=== PATIENT | female | born 1985 | race Caucasian/White ===

== ENCOUNTER 2016-05-23 16:41 | Emergency (ER) | payer MEDICAID ==
[2016-05-23 16:55] VITALS: RESP 16; TEMP 97.9
--- NOTE | 2016-05-23 17:26 | EDPHY ---
H & P Stated Complaint: Fell yesterday;c/o low back pain HPI/ROS: HPI CHIEF COMPLAINT: fall, low back pain HISTORY OF PRESENT ILLNESS: this patient very pleasant 30-year-old female, she denies any significant medical history or surgical history she presents emergency room with left lower lumbar paravertebral back pain after a fall yesterday. Patient states she was smoking a cigarette standing on her outside stairs she got lightheaded after smoking the cigarette fell backwards landing on her left low back. she still has pain to her lumbar spine paravertebral left-sided, and left posterior sacral iliac wing. She is able to walk. She denies radiation of pain specifically denies radiation pain down her leg, denies leg weakness, denies numbness or tingling, denies chest pain or shortness of breath. Past Medical History: Hormone replacement Past Surgical History: no significant surgical history Social History: daily tobacco use, denies alcohol or drugs Family History: noncontributory ROS REVIEW OF SYSTEMS: A comprehensive 10 point review of systems is otherwise negative aside from elements mentioned in the history of present illness. Exam Constitutional triage nursing summary reviewed, vital signs reviewed, awake/ alert. Eyes normal conjunctivae and sclera, EOMI, PERRLA. HENT normal inspection, atraumatic, moist mucus membranes, no epistaxis, neck supple/ no meningismus, no raccoon eyes. Respiratory clear to auscultation bilaterally, normal breath sounds, no respiratory distress, no wheezing. Cardiovascular rate normal, regular rhythm, no murmur, no edema, distal pulses normal. Gastrointestinal soft, non-tender, no rebound, no guarding, normal bowel sounds, no distension, no pulsatile mass. Genitourinary no CVA tenderness. Musculoskeletal back exam: no significant midline lumbar tenderness, no crepitus, no step-offs, she does have some left-sided lumbar paravertebral tenderness, and tenderness over the left posterior sacroiliac crest, no leg weakness, no saddle anesthesia, no midline vertebral tenderness, full range of motion, no calf swelling, no tenderness of extremities, no meningismus, good pulses, neurovascularly intact. Skin pink, warm, & dry, no rash, skin atraumatic. Neurologic awake, alert and oriented x 3, AAOx3, moves all 4 extremities equally, motor intact, sensory intact, CN II-XII intact, normal cerebellar, normal vision, normal speech. Psychiatric normal mood/affect. Heme/Lymph/Immune no lymphadenopathy. Differential Diagnosis: includes but is not limited to in a particular, back contusion, compression fracture, degenerative joint disease, annular tear, nerve root compression, soft tissue injury, pelvic fracture Medical Decision Making: this patient be medicated with Jennings and Valium for pain control muscle spasms. She will have an x-ray of the lumbar spine, x-ray of the pelvis to a pelvis fracture as well as lumbar Spine fracture. Re-evaluation: CT scan of the Abdomen pelvis with IV contrast for trauma and blood in urine The results of the study are negative for acute traumatic injury specifically no perinephric stranding, no hematoma, no acute traumatic injury identified on CT scan unremarkable CT and pelvis with IV contrast The study was read by Dr. Nelson I viewed the images myself on the PACS system. 2011: re-evaluation at this time patient does feel much better after IV fentanyl. Blood work is unremarkable CT unremarkable for acute trauma. No identifiable source of severe left CVA pain after fall. I will put her on anti- inflammatory pain medicine ibuprofen 800 mg. She does feel better after IV fentanyl here in the emergency room. Her urinalysis does indicate she may have a urinary tract infection will also place her on Keflex and urine culture. Source: Patient - Personal History Current Tetanus Diphtheria and Acellular Pertussis (TDAP): Yes Tetanus Vaccine Date: 2013 - Medical/Surgical History Hx Asthma: No Hx Chronic Respiratory Disease: No Hx Diabetes: No Hx Cardiac Disease: No Hx Renal Disease: No Hx Cirrhosis: No Hx Alcoholism: No Hx HIV/AIDS: No Hx Splenectomy or Spleen Trauma: No Other PMH: Hysterectomy, Right oopherectomy, Choly, Bilateral wrist cyst removals, bilateral knee surgeries, tonsillectomy, wisdom teeth extracted, pilonidal cyst removal, ovarian cysts - Social History Smoking Status: Current every day smoker Constitutional: Initial Vital Signs Temperature (C) 36.6 C 05/23/16 16:45 Heart Rate 89 05/23/16 16:45 Respiratory Rate 16 05/23/16 16:45 Blood Pressure 136/98 H 05/23/16 16:45 O2 Sat (%) 95 05/23/16 16:45 O2 Delivery Mode Room Air Allergies/Adverse Reactions: ketorolac tromethamine [From Toradol] Allergy (Verified 05/23/16 16:53) latex Allergy (Verified 05/10/16 05:01) tramadol Allergy (Verified 05/23/16 16:53) tree nut Allergy (Verified 05/10/16 05:01) Home Medications: Medication Instructions Recorded Estradiol 04/29/16 Cephalexin [Keflex] 500 mg PO Q6H #28 cap 05/23/16 Hydrocodone/APAP 5/325 [Jennings 1 - 2 tab PO Q4H PRN #10 tab 05/23/16 5/325 (*)] Ibuprofen [Motrin (*)] 800 mg PO Q6-8PRN #10 tab 05/23/16 Medical Decision Making - Data Points Laboratory Results: Laboratory Results 05/23/16 18:15 05/23/16 18:15 05/23/16 05/23/16 18:15 17:35 WBC 10.82 H 10^3/uL (3.80-9.50) RBC 4.73 10^6/uL (4.18-5.33) Hgb 13.9 g/dL (12.6-16.3) Hct 40.8 % (38.0-47.0) MCV 86.3 fL (81.5-99.8) MCH 29.4 pg (27.9-34.1) MCHC 34.1 g/dL (32.4-36.7) RDW 13.6 % (11.5-15.2) Plt Count 285 10^3/uL (150-400) MPV 10.4 fL (8.7-11.7) Neut % (Auto) 69.5 % (39.3-74.2) Lymph % (Auto) 23.8 % (15.0-45.0) [place] % (Auto) 4.5 % (4.5-13.0) Eos % (Auto) 1.4 % (0.6-7.6) Baso % (Auto) 0.5 % (0.3-1.7) Nucleat RBC Rel Count 0.0 % (0.0-0.2) Absolute Neuts (auto) 7.53 H 10^3/uL (1.70-6.50) Absolute Lymphs (auto) 2.57 10^3/uL (1.00-3.00) Absolute Monos (auto) 0.49 10^3/uL (0.30-0.80) Absolute Eos (auto) 0.15 10^3/uL (0.03-0.40) Absolute Basos (auto) 0.05 10^3/uL (0.02-0.10) Absolute Nucleated RBC 0.00 10^3/uL (0-0.01) Immature Gran % 0.3 % (0.0-1.1) Immature Gran # 0.03 10^3/uL (0.00-0.10) Sodium 141 mEq/L (134-144) Potassium 4.1 mEq/L (3.5-5.2) Chloride 105 mEq/L (97-110) Carbon Dioxide 22 mEq/l (22-31) Anion Gap 14 mEq/L (8-16) BUN 10 mg/dL (7-23) Creatinine 0.8 mg/dL (0.6-1.0) Estimated GFR > 60 Glucose 83 mg/dL (70-100) Calcium 9.7 mg/dL (8.5-10.4) Beta HCG, Qual NEGATIVE Urine Color YELLOW Urine Appearance CLEAR Urine pH 6.0 (5.0-7.5) Ur Specific [place] 1.006 (1.002-1.030) Urine Protein NEGATIVE (NEGATIVE) Urine Ketones NEGATIVE (NEGATIVE) Urine Blood 1+ H (NEGATIVE) Urine Nitrate NEGATIVE (NEGATIVE) Urine Bilirubin NEGATIVE (NEGATIVE) Urine Urobilinogen NEGATIVE EU (0.2-1.0) Ur Leukocyte Esterase NEGATIVE (NEGATIVE) Urine RBC 5-10 H /hpf (0-3) Urine WBC 3-5 H /hpf (0-3) Ur Epithelial Cells TRACE /lpf (NONE-1+) Urine Bacteria 4+ H /hpf (NONE SEEN) Urine Mucus TRACE /lpf (NONE-1+) Ur Culture Indicated? INDICATED H (NI) Urine Glucose NEGATIVE (NEGATIVE) Medications Given: Discontinued Medications Acetaminophen/Hydrocodone Bitart (Jennings 10325) 1 tab PO EDNOW ONE Stop: 05/23/16 17:44 Last Admin: 05/23/16 17:48 Dose: 1 tab Diazepam (Valium) 5 mg PO EDNOW ONE Stop: 05/23/16 17:45 Last Admin: 05/23/16 17:49 Dose: 5 mg Fentanyl (Sublimaze) 50 mcg IVP EDNOW ONE Stop: 05/23/16 18:54 Last Admin: 05/23/16 18:56 Dose: 50 mcg Fentanyl (Sublimaze) 50 mcg IVP EDNOW ONE Stop: 05/23/16 19:19 Last Admin: 05/23/16 19:25 Dose: 50 mcg Sodium Chloride (Ns) 1,000 mls @ 0 mls/hr IV ONCE ONE PRN Reason: Wide Open Stop: 05/23/16 18:04 Last Admin: 05/23/16 18:19 Dose: 1,000 mls Departure - Departure Disposition: Home, Routine, Self-Care Clinical Impression: Flank pain Urinary tract infection Qualifiers: Urinary tract infection type: acute cystitis Hematuria presence: with hematuria Qualifier Code: (N30.01) Acute cystitis with hematuria Condition: Good Instructions: Flank Pain (ED) Additional Instructions: 1. Rest stay well-hydrated 2. you have a urinary tract infection on her urinalysis I have sent this for culture please take Keflex as prescribed. 3. Your CT scan does not show any acute traumatic injury. 4. Take ibuprofen for pain control. Referrals: NONE *PRIMARY CARE P,. [Primary Care Provider] - As per Instructions Prescriptions: Cephalexin [Keflex] 500 mg PO Q6H #28 cap Ibuprofen [Motrin (*)] 800 mg PO Q6-8PRN #10 tab Hydrocodone/APAP 5/325 [Jennings 5/325 (*)] 1 - 2 tab PO Q4H PRN #10 tab PRN Reason: Pain, Moderate
[2016-05-23] MEDS ORDERED: HYDROCODONE/APAP 10/325 TAB PO ONE (17:43)
[2016-05-23] MEDS ORDERED: DIAZEPAM 5 MG TAB PO ONE (17:44)
[2016-05-23 17:51] LABS: COLOR YELLOW; LEUKOCYTE ESTERASE,URINE NEGATIVE (NEGATIVE); NITRITE,URINE NEGATIVE (NEGATIVE)
[2016-05-23 17:59] LABS: BACTERIA 4+ /hpf (NONE SEEN); MUCUS TRACE /lpf (NONE-1+)
[2016-05-23] MEDS ORDERED: NS 1,000 ML IV ONE (18:03)
[2016-05-23 18:21] LABS: % IMMATURE GRANULYOCYTES 0.3 % (0.0-1.1); ABSOLUTE IMMATURE GRANULOCYTES 0.03 10^3/uL (0.00-0.10); ADD DIFF? NO; ADD MORPH? NO; ADD SCAN? NO; ATYPICAL LYMPHOCYTE FLAG 0 (0-99); FRAGMENT RBC FLAG 0 (0-99); HEMATOCRIT 40.8 % (38.0-47.0); HEMOGLOBIN 13.9 g/dL (12.6-16.3); LEFT SHIFT FLG 0 (0-99); LIPEMIA HEMOLYSIS FLAG 90 (0-99); MEAN CELL HEMOGLOBIN 29.4 pg (27.9-34.1); MEAN CELL HEMOGLOBIN CONCENTR. 34.1 g/dL (32.4-36.7); MEAN CELL VOLUME 86.3 fL (81.5-99.8); MEAN PLATELET VOLUME 10.4 fL (8.7-11.7); PLATELET CLUMPS FLAG 0 (0-99); PLATELET COUNT 285 10^3/uL (150-400); RED BLOOD CELL COUNT 4.73 10^6/uL (4.18-5.33); RED CELL DISTRIBUTION WIDTH 13.6 % (11.5-15.2)
--- NOTE | 2016-05-23 18:28 | DX ---
Pelvis and Lumbar Spine Clinical History: 30-year-old female with pain after a fall yesterday. Comparison Study: CT scan of the lumbar spine, dated May 07, 2015. Findings: LUMBAR SPINE (AP Upright and Lateral Views, at 5:34 p.m.): There are 5 nonrib-bearing lumbar type lorraine tebral bodies, with hypoplastic T12 ribs. There are postcholecystectomy clips in the right upper quad rant of the abdomen. The lumbar vertebral body heights and posterior alignments are maintained. There are Schmorl's nodes seen along the endplates of T10, T11, T12, L1, and L2, and small ventral tractio n spurs are seen at T9-T11 with degenerative disc space narrowing at T9-T10, T10-T11, and T11-T12. Mi nor ventral concavities at T12 and L1 are unchanged from before. The interpediculate distances are ap propriate. The sacral arcuate lines are well-contoured, and the SI joints appear normal. Impression: No acute or subacute osseous abnormality, or substantial change since May 07, 2015. AP UPRIGHT PELVIS, at 5:32 p.m.: Bone mineralization is preserved. Each femoral head is well-seated w ithin its respective acetabulum. There is no acute fracture or dislocation. There is no symphysis pub is or SI joint diastasis. Impression: No acute abnormality.
[2016-05-23 18:35] LABS: ANION GAP 14 mEq/L (8-16); CALCIUM 9.7 mg/dL (8.5-10.4); CARBON DIOXIDE 22 mEq/l (22-31); CHLORIDE 105 mEq/L (97-110); CREATININE 0.8 mg/dL (0.6-1.0); GLOMERULAR FILTRATION RATE > 60; GLUCOSE 83 mg/dL (70-100); POTASSIUM 4.1 mEq/L (3.5-5.2); SODIUM 141 mEq/L (134-144)
[2016-05-23] MEDS ORDERED: fentaNYL 100 MCG/2 ML INJ IVP ONE ×2 (18:53→19:18)
[2016-05-23] MEDS ORDERED: fentaNYL 100 MCG/2 ML INJ ONE (18:54)
[2016-05-23] MEDS ORDERED: IOPAMIDOL (ISOVUE-300) 50 ML VIAL IV ONE (19:35)
--- NOTE | 2016-05-23 20:18 | CT ---
CT Scan of the Abdomen and Pelvis (With Contrast) May 23, 2016 Indication: Left-sided flank pain. Trauma. Technique: No oral or rectal contrast. 95 mL of Isovue 300 was given intravenously by machine power injection. Multidetector helical CT imaging was performed from the diaphragm to the symphysis pubis. Dose reduction techniques were utilized. Findings: No acute fracture, free fluid, mesenteric edema or pneumoperitoneum. Lung bases are clear. No basilar pneumothorax or effusion. The liver, spleen, pancreas, adrenal glands, and kidneys are normal. No solid organ contusion or lace ration. The gallbladder is surgically absent. Minimal dilatation of the common bile duct (8 mm) is li jesus postcholecystectomy baseline. The bowel pattern is within normal limit. The appendix is normal. The urinary bladder is nearly compl etely empty. The uterus is either atrophic or surgically absent. No adnexal mass. The abdominal aorta is normal caliber. No acute lumbar spine or pelvic fracture. An umbilical hernia containing only fat has minimal stranding. Impression: 1. No acute solid organ or bowel injury. 2. No acute fracture or free fluid. 3. Umbilical hernia containing only fat. Comment: Results were discussed with Dr. Eric Landers at 8:10 p.m. on May 23, 2016.
[2016-05-23] MEDS ORDERED: CEPHALEXIN 500 MG CAP PO ONE (20:30)
[2016-05-23] MEDS ORDERED: HYDROCOD/APAP 5/325 PREPACK#6 BTL TAKEHOME ONE ×2 (20:30→20:36)
[2016-05-23] MEDS ORDERED: CEPHALEXIN 500MG PREPACK#4 BTL TAKEHOME ONE ×2 (20:31→20:36)
[2016-05-23 20:39] VITALS: BP 119/74; PULSE 63; O2SAT 98
== END 2016-05-23 20:37 | disposition home or self-care (01) ==
DX: S39.91XA Unspecified injury of abdomen, initial encounter (principal); N30.01 Acute cystitis with hematuria; B96.89 Other specified bacterial agents as the cause of diseases classified elsewhere; F17.210 Nicotine dependence, cigarettes, uncomplicated; Z90.710 Acquired absence of both cervix and uterus; Z91.040 Latex allergy status; W18.39XA Other fall on same level, initial encounter
CPT/HCPCS: 96374; J3010; Q9967

== ENCOUNTER 2017-03-16 21:56 | Emergency (ER) | payer MEDICAID ==
--- NOTE | 2017-03-16 22:37 | CPEKG ---
Heart Rate: 68 RR Interval: 882 P-R Interval: 148 QRSD Interval: 90 QT Interval: 380 QTC Interval: 405 P [place]: 15 QRS [place]: 43 T Wave [place]: 30 EKG Severity - NORMAL ECG - EKG Impression: SINUS RHYTHM Electronically Signed By: Rachel Gomez 17-Mar-2017 07:36:11
[2017-03-16] MEDS ORDERED: PROMETHAZINE HCL 25 MG/ML INJ IVP ONE (22:56)
[2017-03-16 23:01] LABS: % IMMATURE GRANULYOCYTES 1.1 % (0.0-1.1); ABSOLUTE IMMATURE GRANULOCYTES 0.14 10^3/uL (0.00-0.10); ADD DIFF? NO; ADD MORPH? NO; ADD SCAN? NO; ATYPICAL LYMPHOCYTE FLAG 20 (0-99); FRAGMENT RBC FLAG 0 (0-99); HEMATOCRIT 39.2 % (38.0-47.0); HEMOGLOBIN 13.2 g/dL (12.6-16.3); LEFT SHIFT FLG 10 (0-99); LIPEMIA HEMOLYSIS FLAG 80 (0-99); MEAN CELL HEMOGLOBIN 29.5 pg (27.9-34.1); MEAN CELL HEMOGLOBIN CONCENTR. 33.7 g/dL (32.4-36.7); MEAN CELL VOLUME 87.7 fL (81.5-99.8); MEAN PLATELET VOLUME 10.2 fL (8.7-11.7); PLATELET CLUMPS FLAG 0 (0-99); PLATELET COUNT 317 10^3/uL (150-400); RED BLOOD CELL COUNT 4.47 10^6/uL (4.18-5.33)
--- NOTE | 2017-03-16 23:01 | EDPHY ---
H & P Stated Complaint: L FLANK POAIN FEW DAYS, SOME NAUSEA, DENIES URINATION PROBLEMS Time Seen by Provider: 03/16/17 22:44 HPI/ROS: HPI The patient presents with left flank pain which has been present for the last 2 days and started slowly, has been intermittent, though getting progressively worse. She describes it as a sharp pain in her left lower posterior ribcage that radiates throughout her abdomen. It is associated with nausea. She said she had difficulty eating her dinner but did not throw up. She has no history of similar pain. She took Tylenol and ibuprofen just prior to arrival. She does not have any dysuria, fever, coughing. I have seen her are in this emergency department for many complaints related to pain. REVIEW OF SYSTEMS Constitutional: No fever, no chills. Eyes: No discharge. ENT: No sore throat. Cardiovascular: No chest pain, no palpitations. Respiratory: No cough, no shortness of breath. Gastrointestinal: See HPI Genitourinary: No hematuria. Musculoskeletal: No back pain. Skin: No rashes. Neurological: No headache. PMHx: Multiple abdominal surgeries Soc Hx: [facility], works at [employer] PHYSICAL General Appearance: Alert, no distress Eyes: Pupils equal and round no pallor or injection ENT, Mouth: Mucous membranes moist Respiratory: There are no retractions, lungs are clear to auscultation Cardiovascular: Regular rate and rhythm Chest wall: There is tenderness to deep palpation of her left lower rib cage posteriorly Gastrointestinal: Abdomen is soft and non-tender, no masses, bowel sounds normal Neurological: A&O, moves all extremities Skin: Warm and dry, no rashes Musculoskeletal: Neck is supple non tender Extremities: symmetrical, full range of motion Psychiatric: Patient is oriented X 3, there is no agitation Source: Patient Exam Limitations: No limitations - Personal History LMP (Females 10-55): Hysterectomy Current Tetanus/Diphtheria Vaccine: Yes Current Tetanus Diphtheria and Acellular Pertussis (TDAP): Yes Tetanus Vaccine Date: 2013 - Medical/Surgical History Hx Asthma: No Hx Chronic Respiratory Disease: No Hx Diabetes: No Hx Cardiac Disease: No Hx Renal Disease: No Hx Cirrhosis: No Hx Alcoholism: No Hx HIV/AIDS: No Hx Splenectomy or Spleen Trauma: No Other PMH: Hysterectomy, Right oopherectomy, Choly, Bilateral wrist cyst removals, bilateral knee surgeries, tonsillectomy, wisdom teeth extracted, pilonidal cyst removal, ovarian cysts - Social History Smoking Status: Current every day smoker Constitutional: Initial Vital Signs Temperature (C) 37.0 C 03/16/17 22:05 Heart Rate 71 03/16/17 22:05 Respiratory Rate 16 03/16/17 22:05 Blood Pressure 133/90 H 03/16/17 22:05 O2 Sat (%) 95 03/16/17 22:05 O2 Delivery Mode Nasal Cannula O2 (L/minute) 2 Allergies/Adverse Reactions: ketorolac tromethamine [From Toradol] Allergy (Verified 03/16/17 22:17) latex Allergy (Verified 03/16/17:17) tramadol Allergy (Verified 03/16/17:) tree nut Allergy (Verified 03/16/17:17) Home Medications: Medication Instructions Recorded Estradiol 04/29/16 Ibuprofen [Motrin (*)] 800 mg PO Q6-8PRN #10 tab 05/23/16 Medical Decision Making - Diagnostics EKG Interpretation: EKG: Complete interpretation has been separately recorded in the [facility] archive. Summary impression: Normal sinus rhythm Imaging Results: Imaging Impressions Chest X-Ray 03/16/17 22:27 Impression: No acute pulmonary disease. Imaging: I viewed and interpreted images myself Differential Diagnosis: 31-year-old female presents with left-sided abdominal/back pain which appears to be in her upper flank in her lower posterior rib segments. It is associated with nausea. Differential diagnosis includes nephrolithiasis, pyelonephritis, pleural effusion, pulmonary embolism, ACS, pericarditis, pancreatitis. In the emergency department, the patient was monitored for several hours and was resting comfortably for most of her stay. I gave her Phenergan, lidocaine with some improvement in her symptoms. Labs and studies were all unremarkable. I doubt any serious pathology at this time. I feel her pain could very well be musculoskeletal. I feel she is suitable for discharge. - Data Points Laboratory Results: Laboratory Results 03/16/17 22:35 03/16/17 22:35 03/17/17 03/16/17 03/16/17 01:15 22:35 22:35 WBC RBC Hgb Hct MCV MCH MCHC RDW Plt Count MPV Neut % (Auto) Lymph % (Auto) [place] % (Auto) Eos % (Auto) Baso % (Auto) Nucleat RBC Rel Count Absolute Neuts (auto) Absolute Lymphs (auto) Absolute Monos (auto) Absolute Eos (auto) Absolute Basos (auto) Absolute Nucleated RBC Immature Gran % Immature Gran # D-Dimer 0.35 ug/mLFEU ug/mLFEU (0.00-0.50) Sodium 140 mEq/L mEq/L (134-144) Potassium 4.2 mEq/L mEq/L (3.5-5.2) Chloride 101 mEq/L mEq/L (97-110) Carbon Dioxide 26 mEq/l mEq/l (22-31) Anion Gap 13 mEq/L mEq/L (8-16) BUN 12 mg/dL mg/dL (7-23) Creatinine 0.9 mg/dL mg/dL (0.6-1.0) Estimated GFR > 60 Glucose 96 mg/dL mg/dL (70-100) Calcium 9.7 mg/dL mg/dL (8.5-10.4) Total Bilirubin 0.2 mg/dL mg/dL (0.1-1.4) AST 17 IU/L IU/L (14-46) ALT 30 IU/L IU/L (9-52) Alkaline Phosphatase 66 IU/L IU/L (38-126) Total Protein 7.3 g/dL g/dL (6.3-8.2) Albumin 4.0 g/dL g/dL (3.5-5.0) Lipase 151 IU/L IU/L (23-300) Urine Color PALE YELLOW Urine Appearance CLEAR Urine pH 5.0 (5.0-7.5) Ur Specific [place] 1.010 (1.002-1.030) Urine Protein NEGATIVE (NEGATIVE) Urine Ketones NEGATIVE (NEGATIVE) Urine Blood NEGATIVE (NEGATIVE) Urine Nitrate NEGATIVE (NEGATIVE) Urine Bilirubin NEGATIVE (NEGATIVE) Urine Urobilinogen NEGATIVE EU EU (0.2-1.0) Ur Leukocyte Esterase NEGATIVE (NEGATIVE) Urine Glucose NEGATIVE (NEGATIVE) 03/16/17 22:35 WBC 12.23 10^3/uL H 10^3/uL (3.80-9.50) RBC 4.47 10^6/uL 10^6/uL (4.18-5.33) Hgb 13.2 g/dL g/dL (12.6-16.3) Hct 39.2 % % (38.0-47.0) MCV 87.7 fL fL (81.5-99.8) MCH 29.5 pg pg (27.9-34.1) MCHC 33.7 g/dL g/dL (32.4-36.7) RDW 14.0 % % (11.5-15.2) Plt Count 317 10^3/uL 10^3/uL (150-400) MPV 10.2 fL fL (8.7-11.7) Neut % (Auto) 60.7 % % (39.3-74.2) Lymph % (Auto) 30.4 % % (15.0-45.0) [place] % (Auto) 5.6 % % (4.5-13.0) Eos % (Auto) 1.8 % % (0.6-7.6) Baso % (Auto) 0.4 % % (0.3-1.7) Nucleat RBC Rel Count 0.0 % % (0.0-0.2) Absolute Neuts (auto) 7.41 10^3/uL H 10^3/uL (1.70-6.50) Absolute Lymphs (auto) 3.72 10^3/uL H 10^3/uL (1.00-3.00) Absolute Monos (auto) 0.69 10^3/uL 10^3/uL (0.30-0.80) Absolute Eos (auto) 0.22 10^3/uL 10^3/uL (0.03-0.40) Absolute Basos (auto) 0.05 10^3/uL 10^3/uL (0.02-0.10) Absolute Nucleated RBC 0.00 10^3/uL 10^3/uL (0-0.01) Immature Gran % 1.1 % % (0.0-1.1) Immature Gran # 0.14 10^3/uL H 10^3/uL (0.00-0.10) D-Dimer Sodium Potassium Chloride Carbon Dioxide Anion Gap BUN Creatinine Estimated GFR Glucose Calcium Total Bilirubin AST ALT Alkaline Phosphatase Total Protein Albumin Lipase Urine Color Urine Appearance Urine pH Ur Specific [place] Urine Protein Urine Ketones Urine Blood Urine Nitrate Urine Bilirubin Urine Urobilinogen Ur Leukocyte Esterase Urine Glucose Medications Given: Discontinued Medications Gabapentin (Neurontin) 600 mg PO EDNOW ONE Stop: 03/16/17 23:29 Last Admin: 03/16/17 23:38 Dose: 600 mg Lidocaine HCl 150 mg/ Sodium (Chloride) 115 mls @ 600 mls/hr IV EDNOW ONE Stop: 03/16/17 23:39 Last Admin: 03/16/17 23:37 Dose: 115 mls Lidocaine (Lidoderm 5%) 1 ea TD EDNOW ONE Stop: 03/16/17 23:29 Last Admin: 03/16/17 23:38 Dose: 1 ea Promethazine HCl (Phenergan) 12.5 mg IVP ONCE ONE Stop: 03/16/17 22:57 Last Admin: 03/16/17 23:04 Dose: 12.5 mg Departure - Departure Disposition: Home, Routine, Self-Care Clinical Impression: Left flank pain Condition: Good Instructions: Flank Pain (ED) Additional Instructions: Please return to the emergency department if your worse in any way. Referrals: [facility],. [Clinic] - As per Instructions
[2017-03-16 23:07] LABS: ALANINE AMINOTRANSFERASE 30 IU/L (9-52); ALKALINE PHOSPHATASE 66 IU/L (38-126); ANION GAP 13 mEq/L (8-16); ASPARTATE AMINOTRANSFERASE 17 IU/L (14-46); BILIRUBIN,TOTAL 0.2 mg/dL (0.1-1.4); CALCIUM 9.7 mg/dL (8.5-10.4); CARBON DIOXIDE 26 mEq/l (22-31); CHLORIDE 101 mEq/L (97-110); CREATININE 0.9 mg/dL (0.6-1.0); GLOMERULAR FILTRATION RATE > 60; GLUCOSE 96 mg/dL (70-100); POTASSIUM 4.2 mEq/L (3.5-5.2); SODIUM 140 mEq/L (134-144); TOTAL PROTEIN 7.3 g/dL (6.3-8.2)
[2017-03-16] MEDS ORDERED: GABAPENTIN 300 MG CAP PO ONE (23:28)
[2017-03-16] MEDS ORDERED: LIDOCAINE 1% 150 MG in NS 100 ML IV ONE (23:28)
[2017-03-16] MEDS ORDERED: LIDOCAINE 5% 1 EA PATCH TD ONE (23:28)
[2017-03-17 00:57] VITALS: TEMP 97.9
[2017-03-17 01:39] LABS: COLOR PALE YELLOW; LEUKOCYTE ESTERASE,URINE NEGATIVE (NEGATIVE); NITRITE,URINE NEGATIVE (NEGATIVE)
[2017-03-17 02:02] VITALS: BP 131/69; PULSE 74; RESP 16; O2SAT 94
[2017-03-17] MEDS ORDERED: PATCH REMOVAL 1 EA PATCH TD SCH (21:00)
== END 2017-03-17 02:03 | disposition home or self-care (01) ==
DX: R10.9 Unspecified abdominal pain (principal); F17.200 Nicotine dependence, unspecified, uncomplicated; Z91.040 Latex allergy status
CPT/HCPCS: 96374; J2550

== ENCOUNTER 2017-04-13 09:30 | Emergency (ER) | payer MEDICAID ==
[2017-04-13 09:35] VITALS: RESP 18
--- NOTE | 2017-04-13 09:45 | EDPHY ---
H & P Stated Complaint: Low back pain since yesterday Time Seen by Provider: 04/13/17 09:44 - Personal History LMP (Females 10-55): Hysterectomy Current Tetanus Diphtheria and Acellular Pertussis (TDAP): Yes Tetanus Vaccine Date: 2013 - Medical/Surgical History Hx Asthma: No Hx Chronic Respiratory Disease: No Hx Diabetes: No Hx Cardiac Disease: No Hx Renal Disease: No Hx Cirrhosis: No Hx Alcoholism: No Hx HIV/AIDS: No Hx Splenectomy or Spleen Trauma: No Other PMH: Hysterectomy, Right oopherectomy, Choly, Bilateral wrist cyst removals, bilateral knee surgeries, tonsillectomy, wisdom teeth extracted, pilonidal cyst removal, ovarian cysts - Social History Smoking Status: Current every day smoker Constitutional: Initial Vital Signs Temperature (C) 36.5 C 04/13/17 09:31 Heart Rate 92 04/13/17 09:31 Respiratory Rate 18 04/13/17 09:31 Blood Pressure 143/81 H 04/13/17 09:31 O2 Sat (%) 96 04/13/17 09:31 O2 Delivery Mode Room Air Allergies/Adverse Reactions: ketorolac tromethamine [From Toradol] Allergy (Verified 03/16/17 22:17) latex Allergy (Verified 03/16/17 22:17) tramadol Allergy (Verified 03/16/17 22:17) tree nut Allergy (Verified 03/16/17 22:17) Home Medications: Medication Instructions Recorded Estradiol 04/29/16 Ibuprofen [Motrin (*)] 800 mg PO Q6-8PRN #10 tab 05/23/16 methylPREDNISolone [Medrol Dose 1 each PO AD #1 ea 04/13/17 Dereje] oxyCODONE IR [Oxycodone Ir (*)] 5 - 10 mg PO Q6 PRN #20 tab 04/13/17 Medical Decision Making ED Course/Re-evaluation: CHIEF COMPLAINT: Low back pain HISTORY OF PRESENT ILLNESS: The patient is a 31 y/o female complaining of center lower back pain since yesterday morning. The pain began when she was playing with her kids yesterday. The pain gradually worsened throughout the night. Took Tylenol and Ibuprofen for her pain, with mild relief. Denies radiculopathy, bowel or urinary complaints, shortness of breath or other pertinent symptoms. REVIEW OF SYSTEMS: A 10 point review of systems was performed and is negative with the exception of the elements mentioned in the history of present illness. PHYSICAL EXAM: HR, BP, O2 Sat, RR. Temp noted General Appearance: Obese, alert, well hydrated, appropriate, and non-toxic appearing. Head: Atraumatic without scalp tenderness or obvious injury Eyes: Pupils equal, round, reactive to light and accommodation, EOMI, no trauma , no injection. Ears: Clear bilaterally, no perforation, normal landmarks Nose: Atraumatic, no rhinorrhea, clear. Throat: Mucus membranes moist. Neck: Supple, nontender, no lymphadenopathy. Respiratory: No retractions, no distress, no wheezes, and no accessory muscle use. Lungs are clear to auscultation bilaterally. Cardiovascular: Regular rate and rhythm, no murmurs, rubs, or gallops. Good capillary refill all extremities. Gastrointestinal: Abdomen is soft, nontender, non-distended, no masses, no rebound, no guarding, no peritoneal signs. Musculoskeletal:Left straight leg raise exacerbates pain more than right. Normal active ROM of all extremities, atraumatic. Neurological: Alert, appropriate, and interactive. Non-focal neuro Skin: No rashes, good turgor, no nodules on palpation. Past medical history: Ovarian cysts Past surgical history: Hysterectomy, right oothecectomy, cholecystectomy, bilateral wrist cyst removals, bilateral knee surgeries, tonsillectomy, pilonidal cyst removal Family history: Noncontributory Social history: Lives in [place], single, smoker DIFFERENTIAL DIAGNOSIS: The differential diagnosis for the patient's back pain included but was not limited to musculoskeletal pain, epidural abscess, herniated disk, spinal fracture, and intra-abdominal causes including urinary system. MEDICAL DECISION MAKING: The patient is a 31 y/o female presenting with center low back pain. Her left straight leg raise exacerbates the pain more than her right. She will not need imaging studies as she has a low back pain with a probable L2/3 disc herniation. 2 tabs Oxycodone administered. Reassessed patient, she is feeling better after the Oxycodone. I discussed outpatient follow up with a neurologist. Return precautions provided; patient is comfortable with this plan. - Data Points Medications Given: Discontinued Medications Oxycodone/Acetaminophen (Percocet 5/325) 2 tab PO EDNOW ONE Stop: 04/13/17 09:52 Last Admin: 04/13/17 10:10 Dose: 2 tab Departure - Departure Disposition: Home, Routine, Self-Care Clinical Impression: Low back pain Qualifiers: Chronicity: acute Back pain laterality: midline Sciatica presence: without sciatica Qualified Code(s): M54.5 - Low back pain Condition: Good Instructions: Low Back Strain (ED), Lower Back Exercises (ED) Additional Instructions: 1. Followup with a neurologist within one week. 2. Return to the emergency department for severe pain, fever, numbness, difficulty walking, change in location or nature of pain or other concerns. 3. Use ibuprofen and Tylenol as directed. 4. Take Oxycodone as prescribed. 5. Try using a heating pad. Referrals: Gaston Ruth MD [Medical Doctor] - As per Instructions Prescriptions: methylPREDNISolone [Medrol Dose Dereje] 1 each PO AD #1 ea oxyCODONE IR [Oxycodone Ir (*)] 5 - 10 mg PO Q6 PRN #20 tab PRN Reason: Pain, Severe Report Scribed for: Patrick Cristobal Report Scribed by: Amie Humphries Date of Report: 04/13/17 Time of Report: 09:53
[2017-04-13] MEDS ORDERED: OXYCODONE/APAP 5/325 TAB PO ONE (09:51)
[2017-04-13] MEDS ORDERED: OXYCODONE/APAP 5/325MG PREPACK#4 BTL TAKEHOME ONE (09:51)
[2017-04-13 11:22] VITALS: BP 130/91; PULSE 62; TEMP 98.6; O2SAT 98
== END 2017-04-13 11:31 | disposition home or self-care (01) ==
DX: M54.5 Low back pain (principal); F17.200 Nicotine dependence, unspecified, uncomplicated; Z91.040 Latex allergy status

== ENCOUNTER 2017-04-17 22:25 | Emergency (ER) | payer MEDICAID ==
[2017-04-17] MEDS ORDERED: CYCLOBENZAPRINE 10 MG TAB PO ONE (23:06)
[2017-04-17] MEDS ORDERED: ONDANSETRON 4 MG/2 ML VIAL IVP ONE (23:06)
--- NOTE | 2017-04-17 23:19 | EDPHY ---
General - History Smoking Status: Current every day smoker <Vincent Cedillo - Last Filed: 04/17/17 23:25> - Diagnostics Imaging: Discussed imaging studies w/ orthopedically impaired teacher Radiologist <Rachel Gomez - Last Filed: 04/18/17 04:36> Narrative: CHIEF COMPLAINT: Back pain HISTORY OF PRESENT ILLNESS: Patient complains of low back pain. Low back pain started on when she "tweaked it playing football." She was seen here on the and treated for lumbar radiculopathy. She was treated with Percocet and steroid pack. She was feeling well at time of discharge. She said the pain increased after she left and has steadily been increasing. Dislocated lumbar spine only. It radiates into the left leg. Associated with some tingling of the left leg and foot. No saddle anesthesia. No incontinence of bowel or bladder. No retention of bowel or bladder. No fever. No trauma or injury. No IV drug use or injection of any substances. She is here because her pain has become intolerable and she is unable to bear weight due to it. No other associated complaints or modifying factors. ESTABLISHED ORTHOPEDIST: None REVIEW OF SYSTEMS: Ten systems reviewed and are negative unless otherwise noted in the HPI PAST MEDICAL HISTORY: No active medical diagnoses PAST SURGICAL HISTORY: Hysterectomy, cholecystectomy, orthopedic surgeries. No surgeries of the lumbar spine. SOCIAL HISTORY: Smoker. No alcohol or drug use. FAMILY HISTORY: Noncontributory EXAMINATION General Appearance: Alert, no distress Neck: No midline tenderness. No crepitus. No step-off or deformity. Cardiovascular: Pulses normal throughout. Symmetric DP pulses 2+. Brisk cap refill Back: No tenderness of the thoracic vertebrae. There is tenderness of the lumbar vertebrae. No crepitus. No deformity. No fluctuance or cellulitis. Neurological: GCS 15. Cranial nerves 2-12 was intact. Patellar reflexes symmetric at 2+. A&O, light sensation to the top foot intact on the right. Decreased on the left foot. Strength is 5/5 in the ankles and knees symmetrically. Skin: Warm and dry, no rash. No petechiae or purpura. No cellulitis Extremities: Nontender, no pedal edema. Symmetric range of motion extremities Psychiatric: Mood and affect normal DIFFERENTIAL DIAGNOSES: Including but not limited to compression fracture, lumbar radiculopathy, acute cord compression, cauda equina, herniated disc, ruptured disc MDM: 11:05 p.m. Severe back pain that is intolerable to the patient. She reports it being so severe that she can't ambulate. On exam her strength is symmetric and she has no saddle anesthesia. She does have decreased sensation on the top of the left foot but not the plantar surface. Due to her intractable pain and of ambulation I have ordered MRI. I have a low clinical suspicion for cauda equina or acute cord compression. Pain medication has been ordered. 11:30 p.m. At this time I have discussed the case with Dr. Gomez. She will assume care the patient. Please see her note for final disposition. SUPERVISION: Patient was independently examined, but I discussed the case with my secondary supervising physician Dr. Gomez ([facility]) PHYSICIAN DOCUMENTATION: The patient was evaluated and managed by the Physician Miniature Set Builder. My co- signature indicates that I have reviewed this chart and I agree with the findings and plan of care as documented. I am the secondary supervising physician. I reassessed the patient after her MRI. She is feeling better. She is somewhat sedated after receiving Ativan for the CT scan. I discussed her test results with her. She is currently changing primary care doctor's and will be seeing someone in [place]. I explained to her that she needs to have follow-up shortly. (Rachel Gomez) - Diagnostics Imaging Results: MRI lumbar spine without contrast is unremarkable, discussed with Dr. Nelson of Radiology. (Rachel Gomez) - Objective Vital Signs: Initial Vital Signs Temperature (C) 36.8 C 04/17/17 22:29 Heart Rate 84 04/17/17 22:29 Respiratory Rate 18 04/17/17 22:29 Blood Pressure 113/75 04/17/17 22:29 O2 Sat (%) 95 04/17/17 22:29 O2 Delivery Mode Room Air Allergies/Adverse Reactions: ketorolac tromethamine [From Toradol] Allergy (Verified 04/17/17 22:31) latex Allergy (Verified 04/17/17 22:31) tramadol Allergy (Verified 04/17/17 22:31) tree nut Allergy (Verified 04/17/17 22:31) Home Medications: Medication Instructions Recorded Estradiol 04/29/16 Ibuprofen [Motrin (*)] 800 mg PO Q6-8PRN #10 tab 05/23/16 methylPREDNISolone [Medrol Dose 1 each PO AD #1 ea 04/13/17 Dereje] oxyCODONE IR [Oxycodone Ir (*)] 5 - 10 mg PO Q6 PRN #20 tab 04/13/17 Laboratory Results: Laboratory Results 04/17/17 23:40 04/17/17 23:40 04/17/17 04/17/17 23:40 23:40 WBC 11.90 10^3/uL H 10^3/uL (3.80-9.50) RBC 4.31 10^6/uL 10^6/uL (4.18-5.33) Hgb 12.8 g/dL g/dL (12.6-16.3) Hct 37.2 % L % (38.0-47.0) MCV 86.3 fL fL (81.5-99.8) MCH 29.7 pg pg (27.9-34.1) MCHC 34.4 g/dL g/dL (32.4-36.7) RDW 14.2 % % (11.5-15.2) Plt Count 317 10^3/uL 10^3/uL (150-400) MPV 10.3 fL fL (8.7-11.7) Neut % (Auto) 66.3 % % (39.3-74.2) Lymph % (Auto) 25.9 % % (15.0-45.0) [place] % (Auto) 5.2 % % (4.5-13.0) Eos % (Auto) 1.9 % % (0.6-7.6) Baso % (Auto) 0.3 % % (0.3-1.7) Nucleat RBC Rel Count 0.0 % % (0.0-0.2) Absolute Neuts (auto) 7.88 10^3/uL H 10^3/uL (1.70-6.50) Absolute Lymphs (auto) 3.08 10^3/uL H 10^3/uL (1.00-3.00) Absolute Monos (auto) 0.62 10^3/uL 10^3/uL (0.30-0.80) Absolute Eos (auto) 0.23 10^3/uL 10^3/uL (0.03-0.40) Absolute Basos (auto) 0.04 10^3/uL 10^3/uL (0.02-0.10) Absolute Nucleated RBC 0.00 10^3/uL 10^3/uL (0-0.01) Immature Gran % 0.4 % % (0.0-1.1) Immature Gran # 0.05 10^3/uL 10^3/uL (0.00-0.10) Sodium 142 mEq/L mEq/L (134-144) Potassium 4.4 mEq/L mEq/L (3.5-5.2) Chloride 104 mEq/L mEq/L (97-110) Carbon Dioxide 23 mEq/l mEq/l (22-31) Anion Gap 15 mEq/L mEq/L (8-16) BUN 19 mg/dL mg/dL (7-23) Creatinine 0.9 mg/dL mg/dL (0.6-1.0) Estimated GFR > 60 Glucose 104 mg/dL H mg/dL (70-100) Calcium 9.7 mg/dL mg/dL (8.5-10.4) Medications Given: Discontinued Medications Cyclobenzaprine HCl (Flexeril) 10 mg PO EDNOW ONE Stop: 04/17/17 23:07 Last Admin: 04/17/17 23:28 Dose: 10 mg Lorazepam (Ativan Injection) 0.5 mg IVP EDNOW ONE Stop: 04/18/17 00:14 Last Admin: 04/18/17 00:15 Dose: 0.5 mg Morphine Sulfate (Morphine) 4 mg IVP EDNOW ONE Stop: 04/17/17 23:07 Last Admin: 04/17/17 23:43 Dose: 4 mg Ondansetron HCl (Zofran) 4 mg IVP EDNOW ONE Stop: 04/17/17 23:07 Last Admin: 04/17/17 23:41 Dose: 4 mg Departure <Vincent Cedillo - Last Filed: 04/17/17 23:25> <Rachel Gomez - Last Filed: 04/18/17 04:36> - Departure Disposition: Home, Routine, Self-Care Clinical Impression: Lumbar back pain Condition: Good Instructions: Lower Back Exercises (ED) Additional Instructions: You should follow up with your primary care doctor in the next few days. You should return to the emergency department if you are worse in any way. Referrals: NONE *PRIMARY CARE P,. [Primary Care Provider] - As per Instructions
[2017-04-17 23:47] LABS: % IMMATURE GRANULYOCYTES 0.4 % (0.0-1.1); ABSOLUTE IMMATURE GRANULOCYTES 0.05 10^3/uL (0.00-0.10); ADD DIFF? NO; ADD MORPH? NO; ADD SCAN? NO; ATYPICAL LYMPHOCYTE FLAG 0 (0-99); FRAGMENT RBC FLAG 0 (0-99); HEMATOCRIT 37.2 % (38.0-47.0); HEMOGLOBIN 12.8 g/dL (12.6-16.3); LEFT SHIFT FLG 0 (0-99); LIPEMIA HEMOLYSIS FLAG 90 (0-99); MEAN CELL HEMOGLOBIN 29.7 pg (27.9-34.1); MEAN CELL HEMOGLOBIN CONCENTR. 34.4 g/dL (32.4-36.7); MEAN CELL VOLUME 86.3 fL (81.5-99.8); MEAN PLATELET VOLUME 10.3 fL (8.7-11.7); PLATELET CLUMPS FLAG 0 (0-99); PLATELET COUNT 317 10^3/uL (150-400); RED BLOOD CELL COUNT 4.31 10^6/uL (4.18-5.33); RED CELL DISTRIBUTION WIDTH 14.2 % (11.5-15.2)
[2017-04-18] MEDS ORDERED: LORazepam 2 MG/ML INJ IVP ONE (00:13)
[2017-04-18] MEDS ORDERED: LORazepam 2 MG/ML INJ ONE (00:13)
[2017-04-18 00:14] LABS: ANION GAP 15 mEq/L (8-16); CALCIUM 9.7 mg/dL (8.5-10.4); CARBON DIOXIDE 23 mEq/l (22-31); CHLORIDE 104 mEq/L (97-110); CREATININE 0.9 mg/dL (0.6-1.0); GLOMERULAR FILTRATION RATE > 60; GLUCOSE 104 mg/dL (70-100); POTASSIUM 4.4 mEq/L (3.5-5.2); SODIUM 142 mEq/L (134-144)
[2017-04-18 01:10] VITALS: BP 117/72; PULSE 89; RESP 20; TEMP 98.4; O2SAT 93
== END 2017-04-18 01:09 | disposition home or self-care (01) ==
DX: M54.5 Low back pain (principal); F17.200 Nicotine dependence, unspecified, uncomplicated; Z91.040 Latex allergy status
CPT/HCPCS: 96374; J2060; J2405

== ENCOUNTER 2017-05-07 17:00 | Emergency (ER) | payer MEDICAID ==
[2017-05-07 17:22] VITALS: RESP 18
[2017-05-07] MEDS ORDERED: CLINDAMYCIN 600 MG/DEXTROSE 50 ML IV ONE (18:25)
[2017-05-07] MEDS ORDERED: NS 1,000 ML IV ONE (18:25)
[2017-05-07] MEDS ORDERED: OXYCODONE/APAP 5/325 TAB PO ONE (18:26)
[2017-05-07] MEDS ORDERED: LET GEL TOPICAL 1 EA SYR TP ONE ×2 (18:49)
[2017-05-07 18:50] LABS: % IMMATURE GRANULYOCYTES 0.5 % (0.0-1.1); ABSOLUTE IMMATURE GRANULOCYTES 0.06 10^3/uL (0.00-0.10); ADD DIFF? NO; ADD MORPH? NO; ADD SCAN? NO; ATYPICAL LYMPHOCYTE FLAG 0 (0-99); FRAGMENT RBC FLAG 0 (0-99); HEMATOCRIT 39.2 % (38.0-47.0); HEMOGLOBIN 13.1 g/dL (12.6-16.3); LEFT SHIFT FLG 0 (0-99); LIPEMIA HEMOLYSIS FLAG 80 (0-99); MEAN CELL HEMOGLOBIN 29.2 pg (27.9-34.1); MEAN CELL HEMOGLOBIN CONCENTR. 33.4 g/dL (32.4-36.7); MEAN CELL VOLUME 87.5 fL (81.5-99.8); MEAN PLATELET VOLUME 10.2 fL (8.7-11.7); PLATELET CLUMPS FLAG 10 (0-99); PLATELET COUNT 302 10^3/uL (150-400); RED BLOOD CELL COUNT 4.48 10^6/uL (4.18-5.33); RED CELL DISTRIBUTION WIDTH 14.4 % (11.5-15.2)
[2017-05-07 19:07] LABS: ANION GAP 15 mEq/L (8-16); CALCIUM 9.5 mg/dL (8.5-10.4); CARBON DIOXIDE 25 mEq/l (22-31); CHLORIDE 103 mEq/L (97-110); CREATININE 0.8 mg/dL (0.6-1.0); GLOMERULAR FILTRATION RATE > 60; GLUCOSE 94 mg/dL (70-100); POTASSIUM 4.1 mEq/L (3.5-5.2); SODIUM 143 mEq/L (134-144)
[2017-05-07 19:16] VITALS: BP 141/100; PULSE 80; O2SAT 96
--- NOTE | 2017-05-07 19:17 | EDPHY ---
H & P Stated Complaint: Cyst on R breast x 2 wks:I&D done yesterday in [place];wants recheck Time Seen by Provider: 05/07/17 17:41 HPI/ROS: HPI: This is a 31-year-old female who presents with Chief Complaint: Cyst on R breast x 2 wks:I&D done yesterday in [place];wants recheck Location: Right breast Quality: Abscess Duration: 2 weeks Signs and Symptoms: No fever, no nipple discharge, no skin changes, no radiation Timing: Worsening Severity: Moderate to severe Context: Patient reports that she developed around 3 or 4 o'clock on her right breast assist that has increased in size over the last 2 weeks. Yesterday and developed redness, warmth and pain that was so intense that she had to leave work. She was in [place] and went to an urgent care where she had an I and D performed and packing placed. She reports that today the redness has increased accompanied by increased pain that worsens with any palpation of the area. She reports they did not place her on antibiotics. No history of diabetes mellitus , MRSA. Reports that he urine half ago that she had a cyst on her left breast that she had at bilateral mammogram performed that was normal per patient. Modifying Factors: See above Comment: ROS: see HPI Constitutional: No fever, no chills, no weight loss Eyes: No blurred vision Respiratory: No shortness of breath, no cough Cardiovascular: No chest pain Gastrointestinal: No nausea, no vomiting, no diarrhea Genitourinary: No dysuria Extremities: No myalgias Neurologic: No weakness, no numbness Skin: No rashes Hematologic: No bruising, no bleeding MEDICAL/SURGICAL/SOCIAL HISTORY: Hysterectomy, Right oopherectomy, Choly, Bilateral wrist cyst removals, bilateral knee surgeries, tonsillectomy, wisdom teeth extracted, pilonidal cyst removal, ovarian cysts Social history: . CONSTITUTIONAL: Obese white female, nontoxic in appearance, awake and alert, no obvious distress HEENT: Atraumatic and normocephalic, PERRL, EOMI. Tympanic membranes clear. Oropharynx clear, no exudate and moist pink mucosa. Airway patent. No lymphadenopathy. No meningismus. Cardiovascular: Normal S1/S2, regular rate, regular rhythm, without murmur rub or gallop. PULMONARY/CHEST: Symmetrical and nontender. Clear to auscultation bilaterally. Good air movement. No accessory muscle usage. BREAST: Pendulous, 4 o'clock packing removed; 0.5 inches surrounding mild erythema, no induration/fluctuance. + tenderness to palpation. ABDOMEN: Soft, nondistended, nontender, no rebound, no guarding, no peritoneal signs, no masses or organomegaly. No CVAT. EXTREMITIES: 2/2 pulses, strength 5/5, no deformities, no clubbing, no cyanosis or edema. NEUROLOGICAL: no focal neuro deficits. GCS 15. SKIN: Warm and dry, no erythema. no rash. Good capillary refill. Source: Patient Exam Limitations: No limitations - Personal History LMP (Females 10-55): Post Menopausal Current Tetanus Diphtheria and Acellular Pertussis (TDAP): Yes Tetanus Vaccine Date: 2013 - Medical/Surgical History Hx Asthma: No Hx Chronic Respiratory Disease: No Hx Diabetes: No Hx Cardiac Disease: No Hx Renal Disease: No Hx Cirrhosis: No Hx Alcoholism: No Hx HIV/AIDS: No Hx Splenectomy or Spleen Trauma: No Other PMH: Hysterectomy, Right oopherectomy, Choly, Bilateral wrist cyst removals, bilateral knee surgeries, tonsillectomy, wisdom teeth extracted, pilonidal cyst removal, ovarian cysts - Social History Smoking Status: Current every day smoker Constitutional: Initial Vital Signs Temperature (C) 36.7 C 05/07/17 17:10 Heart Rate 89 05/07/17 17:10 Respiratory Rate 18 05/07/17 17:10 Blood Pressure 124/96 H 05/07/17 17:10 O2 Sat (%) 98 05/07/17 17:10 O2 Delivery Mode Room Air Allergies/Adverse Reactions: ketorolac tromethamine [From Toradol] Allergy (Verified 05/07/17 17:17) latex Allergy (Verified 05/07/17 17:17) tramadol Allergy (Verified 05/07/17 17:17) tree nut Allergy (Verified 05/07/17 17:17) Home Medications: Medication Instructions Recorded Estradiol 04/29/16 Clindamycin HCl [Clindamycin] 300 mg PO TID #30 cap 05/07/17 oxyCODONE/APAP 5/325 [Percocet 1 tab PO Q6H PRN #12 tab 05/07/17 5/325 (*)] Medical Decision Making Procedures: Procedure: Abscess drainage. The patient's abscess was located on the right breast. I obtained verbal consent from the patient to drain the abscess who was informed about the possibility of bleeding and pain. Packing was removed from the abscess. I irrigated the wound and placed some packing. The patient tolerated the procedure well. The procedure was performed by myself. ED Course/Re-evaluation: Labs, blood culture, IV fluids, IV medications, topical medications ordered Patient given 1 L normal saline, p.o. Percocet, topical let, IV clindamycin No signs of neurovascular compromise/tenting of skin/compartment syndrome/sepsis /acute kidney injury Mild leukocytosis noted Small amount of packing removed less than 0.25 inch; and same amount replaced This patient was seen under the supervision of my secondary supervising physician. I evaluated care for this patient independently. Patient's presentation, labs/imaging, treatment and plan of care were discussed with secondary supervising physician. Differential Diagnosis: Differential diagnosis includes but is not limited to breast abscess. - Data Points Laboratory Results: Laboratory Results 05/07/17 18:38 05/07/17 18:38 05/07/17 05/07/17 05/07/17 18:38 18:38 18:38 WBC 12.62 10^3/uL H 10^3/uL (3.80-9.50) RBC 4.48 10^6/uL 10^6/uL (4.18-5.33) Hgb 13.1 g/dL g/dL (12.6-16.3) Hct 39.2 % % (38.0-47.0) MCV 87.5 fL fL (81.5-99.8) MCH 29.2 pg pg (27.9-34.1) MCHC 33.4 g/dL g/dL (32.4-36.7) RDW 14.4 % % (11.5-15.2) Plt Count 302 10^3/uL 10^3/uL (150-400) MPV 10.2 fL fL (8.7-11.7) Neut % (Auto) 66.7 % % (39.3-74.2) Lymph % (Auto) 25.7 % % (15.0-45.0) [place] % (Auto) 4.7 % % (4.5-13.0) Eos % (Auto) 2.1 % % (0.6-7.6) Baso % (Auto) 0.3 % % (0.3-1.7) Nucleat RBC Rel Count 0.0 % % (0.0-0.2) Absolute Neuts (auto) 8.43 10^3/uL H 10^3/uL (1.70-6.50) Absolute Lymphs (auto) 3.24 10^3/uL H 10^3/uL (1.00-3.00) Absolute Monos (auto) 0.59 10^3/uL 10^3/uL (0.30-0.80) Absolute Eos (auto) 0.26 10^3/uL 10^3/uL (0.03-0.40) Absolute Basos (auto) 0.04 10^3/uL 10^3/uL (0.02-0.10) Absolute Nucleated RBC 0.00 10^3/uL 10^3/uL (0-0.01) Immature Gran % 0.5 % % (0.0-1.1) Immature Gran # 0.06 10^3/uL 10^3/uL (0.00-0.10) VBG Lactic Acid 1.1 mmol/L mmol/L (0.7-2.1) Sodium 143 mEq/L mEq/L (134-144) Potassium 4.1 mEq/L mEq/L (3.5-5.2) Chloride 103 mEq/L mEq/L (97-110) Carbon Dioxide 25 mEq/l mEq/l (22-31) Anion Gap 15 mEq/L mEq/L (8-16) BUN 12 mg/dL mg/dL (7-23) Creatinine 0.8 mg/dL mg/dL (0.6-1.0) Estimated GFR > 60 Glucose 94 mg/dL mg/dL (70-100) Calcium 9.5 mg/dL mg/dL (8.5-10.4) Medications Given: Discontinued Medications Clindamycin Phosphate/Dextrose (Cleocin 600 Mg (Premix)) 50 mls @ 100 mls/hr IV EDNOW ONE PRN Reason: Protocol Stop: 05/07/17 18:54 Last Admin: 05/07/17 18:56 Dose: 50 mls Sodium Chloride (Ns) 1,000 mls @ 0 mls/hr IV EDNOW ONE; Wide Open PRN Reason: Protocol Stop: 05/07/17 18:26 Last Admin: 05/07/17 18:35 Dose: 1,000 mls Oxycodone/Acetaminophen (Percocet 5/325) 1 tab PO EDNOW ONE Stop: 05/07/17 18:27 Last Admin: 05/07/17 18:31 Dose: 1 tab Tetracaine/Epinephrine/Lidocaine (Let Gel Topical) 1 ea TP EDNOW ONE Stop: 05/07/17 18:50 Last Admin: 05/07/17 18:56 Dose: 1 ea Departure - Departure Disposition: Home, Routine, Self-Care Clinical Impression: Abscess of right breast Condition: Good Instructions: Abscess Incision and Drainage (DC) Additional Instructions: Keep the dressing/packing dry and in place for 48 hours. After 48 hours, you may remove the dressing; wash the site daily with mild soap and water; then pat dry. Take all of your antibiotics until complete. Take Tylenol 650 mg every 4 hours and/or Ibuprofen 600 mg every 8 hours with food as needed for pain. Follow up with [facility] in 2-3 days for re-evaluation. [facility]errals: [facility] [Clinic] - As per Instructions Prescriptions: Clindamycin HCl [Clindamycin] 300 mg PO TID #30 cap oxyCODONE/APAP 5/325 [Percocet 5/325 (*)] 1 tab PO Q6H PRN #12 tab PRN Reason: Pain, Severe
[2017-05-07 19:58] VITALS: TEMP 98.2
== END 2017-05-07 19:57 | disposition home or self-care (01) ==
DX: N61.1 Abscess of the breast and nipple (principal); F17.200 Nicotine dependence, unspecified, uncomplicated; Z91.040 Latex allergy status
CPT/HCPCS: 96365

== ENCOUNTER 2017-05-17 13:46 | Emergency (ER) | payer MEDICAID ==
[2017-05-17 13:51] VITALS: TEMP 98.1
--- NOTE | 2017-05-17 14:11 | EDPHY ---
H & P Time Seen by Provider: 05/17/17 14:02 HPI/ROS: CHIEF COMPLAINT: Left wrist and hand injury HISTORY OF PRESENT ILLNESS: Slipped on ice today at 6:00 a.m. injuring her left wrist and hand. Fell on the outstretched arm but does not have elbow arm or shoulder pain. No other injuries. Pain is primarily at the base left thumb and worse with movement. REVIEW OF SYSTEMS: No weakness or numbness distally. PAST MEDICAL HISTORY: Includes hysterectomy, cholecystectomy, previous cyst removal on both wrists. Bilateral knee surgeries. Social history: No current primary care provider, works as caregiver for elderly General Appearance: Alert and conversant, cooperative. Normal range of motion of left elbow and compartments are soft in the left forearm. She has pain and tenderness on the radial side of the left wrist in the snuffbox of the left hand. Distally normal motor sensory and capillary refill. Skin intact without abrasion or laceration or ecchymosis. Emergency Department course/MDM: X-ray of the left hand and wrist. Patient took Tylenol and Motrin prior to arrival, declined additional pain medication on arrival. Warned may have occult scaphoid fracture, splint and mandatory orthopedic follow -up next week. Procedure: Splint placement. A left thumb spica Velcro splint was applied. After application of the splint I returned and re-examined the patient. The splint was adequately immobilizing the joint and distal to the splint the patient's circulation and sensation was intact. Smoking Status: Current every day smoker Constitutional: Initial Vital Signs Temperature (C) 36.7 C 05/17/17 13:47 Heart Rate 56 L 05/17/17 13:47 Respiratory Rate 16 05/17/17 13:47 Blood Pressure 168/82 H 05/17/17 13:47 O2 Sat (%) 96 05/17/17 13:47 O2 Delivery Mode Room Air Allergies/Adverse Reactions: ketorolac tromethamine [From Toradol] Allergy (Verified 05/17/17 13:47) latex Allergy (Verified 05/17/17 13:47) tramadol Allergy (Verified 05/17/17 13:47) tree nut Allergy (Verified 05/17/17 13:47) Home Medications: Medication Instructions Recorded Estradiol 04/29/16 oxyCODONE/APAP 5/325 [Percocet] 1 tab PO Q4-6PRN PRN #11 tab 05/17/17 MDM/Departure - MDM Imaging Results: Imaging Impressions Hand X-Ray 05/17/17 14:07 Impression: Nothing acute identified. 2. Left Hand, Three Views History: Pain post trauma. Fall on ice Findings: No fracture or dislocation is identified. Impression: Nothing acute identified. Wrist X-Ray 05/17/17 14:07 Impression: Nothing acute identified. 2. Left Hand, Three Views History: Pain post trauma. Fall on ice Findings: No fracture or dislocation is identified. Impression: Nothing acute identified. Medications Given: Discontinued Medications Oxycodone HCl (Oxycodone Ir) 5 mg PO EDNOW ONE Stop: 05/17/17 14:40 Last Admin: 05/17/17 14:44 Dose: 5 mg - Depart Disposition: Home, Routine, Self-Care Clinical Impression: Left wrist sprain Qualifiers: Encounter type: initial encounter Qualified Code(s): S63.502A - Unspecified sprain of left wrist, initial encounter Condition: Good Instructions: Wrist Sprain (ED) Stand Alone Forms: Work Limited Duty, Work Excuse Prescriptions: oxyCODONE/APAP 5/325 [Percocet] 1 tab PO Q4-6PRN PRN #11 tab PRN Reason: Pain Referrals: Bharati Minaya MD [Medical Doctor] - 05/22/17 (Hand specialist referral)
[2017-05-17] MEDS ORDERED: oxyCODONE IR 5 MG TAB PO ONE (14:39)
[2017-05-17 14:50] VITALS: BP 134/100; PULSE 71; RESP 18; O2SAT 97
== END 2017-05-17 15:03 | disposition home or self-care (01) ==
LOC: EEVIPCON 13:46
DX: S63.502A Unspecified sprain of left wrist, initial encounter (principal); F17.200 Nicotine dependence, unspecified, uncomplicated; Z91.040 Latex allergy status; W01.0XXA Fall on same level from slipping, tripping and stumbling without subsequent striking against object, initial encounter
CPT/HCPCS: L3807

== ENCOUNTER 2017-05-29 17:14 | Emergency (ER) | payer MEDICAID ==
[2017-05-29] MEDS ORDERED: HYDROmorphONE/DILAUDID 1 MG/ML INJ IVP ONE ×2 (19:25→21:01)
[2017-05-29] MEDS ORDERED: NS 1,000 ML IV ONE (19:25)
[2017-05-29 19:50] LABS: PLATELET COUNT 280 10^3/uL (150-400)
[2017-05-29] MEDS ORDERED: ONDANSETRON 4 MG/2 ML VIAL IVP ONE (19:53)
--- NOTE | 2017-05-29 21:01 | EDPHY ---
H & P Stated Complaint: r lower abd and flank pain since yesterday HPI/ROS: Chief complaint: Right flank pain History of present illness: This is a 31-year-old female who presents to the emergency department for right flank pain. Patient reports the onset of symptoms over the last day. Describes a sharp pain radiating from the right flank down into the growing. She reports associated nausea and vomiting. She reports darker urine than usual although she thinks she is dehydrated. She denies precipitating factors. She denies alleviating factors. She denies other associated signs or symptoms including no fevers the, no diarrhea or constipation, no dysuria, frequency or hesitancy, no abnormal vaginal discharge or discomfort. Review of systems: A 10 point review of systems was obtained and other than described above was negative - Personal History LMP (Females 10-55): Hysterectomy Current Tetanus/Diphtheria Vaccine: Yes Tetanus Vaccine Date: 2013 - Medical/Surgical History Hx Asthma: No Hx Chronic Respiratory Disease: No Hx Diabetes: No Hx Cardiac Disease: No Hx Renal Disease: No Hx Cirrhosis: No Hx Alcoholism: No Hx HIV/AIDS: No Hx Splenectomy or Spleen Trauma: No Other PMH: Hysterectomy, Right oopherectomy, Choly, Bilateral wrist cyst removals, bilateral knee surgeries, tonsillectomy, wisdom teeth extracted, pilonidal cyst removal, ovarian cysts - Social History Smoking Status: Current every day smoker - Physical Exam Exam: General Appearance: Alert, appears uncomfortable. Eyes: Pupils equal and round no pallor or injection. ENT, Mouth: Mucous membranes moist. Respiratory: There are no retractions, lungs are clear to auscultation. Cardiovascular: Regular rate and rhythm. Gastrointestinal: Abdomen is soft and non tender, no masses, bowel sounds normal. Genitourinary: No CVA tenderness Neurological: Alert and oriented x4. Strength and sensation intact and symmetrical. Skin: Warm and dry, no rashes. Musculoskeletal: Neck is supple non tender. Extremities are symmetrical, full range of motion. Psychiatric: Patient is oriented X 3, there is no agitation. Constitutional: Initial Vital Signs Temperature (C) 36.8 C 05/29/17 17:47 Heart Rate 82 05/29/17 17:47 Respiratory Rate 16 05/29/17 17:47 Blood Pressure 165/89 H 05/29/17 17:47 O2 Sat (%) 95 05/29/17 17:47 O2 Delivery Mode Room Air Allergies/Adverse Reactions: ketorolac tromethamine [From Toradol] Allergy (Verified 05/29/17 17:46) latex Allergy (Verified 05/29/17 17:46) tramadol Allergy (Verified 05/29/17 17:46) tree nut Allergy (Verified 05/29/17 17:46) Home Medications: Medication Instructions Recorded Estrace 05/29/17 Medical Decision Making - Diagnostics Imaging Results: Imaging Impressions Abdomen/Pelvis CT 05/29/17 20:12 Impression: 1. No nephrolithiasis, hydronephrosis, or localized inflammatory process to explain right-sided pain. 2. Normal appendix. Mild right-sided constipation. 3. Increased size of umbilical hernia containing only fat. Findings discussed with Emergency Department Physician Profile Stitching Machine Operator, [employer] [place] , at 05/29/2017 at 2101. Attention: This CT examination is specifically designed to evaluate patients who are clinically suspected of having acute obstructive uropathy. This examination does not use radiographic contrast, and as such, provides only a limited evaluation of the abdomen, pelvis, and retroperitoneum. If there is further clinical suspicion for pathological conditions other than obstructive uropathy, a complete CT evaluation of the abdomen and pelvis utilizing intravenous, oral, and rectal contrast should be considered. Imaging: Discussed imaging studies w/ call box wirer Radiologist ED Course/Re-evaluation: Patient seen under the supervision of my secondary supervising physician Dr. Toribio Lucio. Patient presents to the emergency department for right flank pain. She is nontoxic appearing. Vital signs are stable. Physical exam is benign. Blood studies, urinalysis and CT largely unremarkable. I have discussed with the patient it is not clear as to the cause of her symptoms. However, I believe she is appropriate for outpatient management. Home care is discussed. She is to follow up with a primary care doctor this week for recheck. Return precautions are given. The patient voiced understanding and agreement with plan. Differential Diagnosis: Included but not limited to cystitis, pyelonephritis, nephrolithiasis, biliary tract disease, pancreatitis, duodenitis, appendicitis, - Data Points Laboratory Results: Laboratory Results 05/29/17 19:30 05/29/17 19:30 05/29/17 05/29/17 05/29/17 19:30 19:30 19:30 WBC RBC Hgb Hct MCV MCH MCHC RDW Plt Count MPV Neut % (Auto) Lymph % (Auto) [place] % (Auto) Eos % (Auto) Baso % (Auto) Nucleat RBC Rel Count Absolute Neuts (auto) Absolute Lymphs (auto) Absolute Monos (auto) Absolute Eos (auto) Absolute Basos (auto) Absolute Nucleated RBC Immature Gran % Immature Gran # Sodium 143 mEq/L mEq/L (135-145) Potassium 4.3 mEq/L mEq/L (3.5-5.2) Chloride 106 mEq/L mEq/L (97-110) Carbon Dioxide 25 mEq/l mEq/l (22-31) Anion Gap 12 mEq/L mEq/L (8-16) BUN 16 mg/dL mg/dL (7-23) Creatinine 0.8 mg/dL mg/dL (0.6-1.0) Estimated GFR > 60 Glucose 95 mg/dL mg/dL (70-100) Calcium 9.6 mg/dL mg/dL (8.5-10.4) Total Bilirubin 0.4 mg/dL mg/dL (0.1-1.4) Conjugated Bilirubin 0.3 mg/dL mg/dL (0.0-0.5) Unconjugated Bilirubin 0.1 mg/dL mg/dL (0.0-1.1) AST 20 IU/L IU/L (14-46) ALT 26 IU/L IU/L (9-52) Alkaline Phosphatase 66 IU/L IU/L (38-126) Total Protein 7.3 g/dL g/dL (6.3-8.2) Albumin 4.1 g/dL g/dL (3.5-5.0) Lipase 224 IU/L IU/L (23-300) Beta HCG, Qual NEGATIVE Urine Color Urine Appearance Urine pH Ur Specific [place] Urine Protein Urine Ketones Urine Blood Urine Nitrate Urine Bilirubin Urine Urobilinogen Ur Leukocyte Esterase Urine RBC Urine WBC Ur Epithelial Cells Urine Bacteria Urine Mucus Urine Glucose 05/29/17 05/29/17 05/29/17 19:30 18:15 18:15 WBC 12.57 10^3/uL H 10^3/uL (3.80-9.50) RBC 4.43 10^6/uL 10^6/uL (4.18-5.33) Hgb 13.0 g/dL g/dL (12.6-16.3) Hct 38.2 % % (38.0-47.0) MCV 86.2 fL fL (81.5-99.8) MCH 29.3 pg pg (27.9-34.1) MCHC 34.0 g/dL g/dL (32.4-36.7) RDW 14.4 % % (11.5-15.2) Plt Count 280 10^3/uL 10^3/uL (150-400) MPV 10.3 fL fL (8.7-11.7) Neut % (Auto) 63.3 % % (39.3-74.2) Lymph % (Auto) 29.2 % % (15.0-45.0) [place] % (Auto) 4.7 % % (4.5-13.0) Eos % (Auto) 1.8 % % (0.6-7.6) Baso % (Auto) 0.4 % % (0.3-1.7) Nucleat RBC Rel Count 0.0 % % (0.0-0.2) Absolute Neuts (auto) 7.97 10^3/uL H 10^3/uL (1.70-6.50) Absolute Lymphs (auto) 3.67 10^3/uL H 10^3/uL (1.00-3.00) Absolute Monos (auto) 0.59 10^3/uL 10^3/uL (0.30-0.80) Absolute Eos (auto) 0.22 10^3/uL 10^3/uL (0.03-0.40) Absolute Basos (auto) 0.05 10^3/uL 10^3/uL (0.02-0.10) Absolute Nucleated RBC 0.00 10^3/uL 10^3/uL (0-0.01) Immature Gran % 0.6 % % (0.0-1.1) Immature Gran # 0.07 10^3/uL 10^3/uL (0.00-0.10) Sodium Potassium Chloride Carbon Dioxide Anion Gap BUN Creatinine Estimated GFR Glucose Calcium Total Bilirubin Conjugated Bilirubin Unconjugated Bilirubin AST ALT Alkaline Phosphatase Total Protein Albumin Lipase Beta HCG, Qual Urine Color YELLOW Urine Appearance HAZY Urine pH 6.0 (5.0-7.5) Ur Specific [place] 1.020 (1.002-1.030) Urine Protein NEGATIVE (NEGATIVE) Urine Ketones NEGATIVE (NEGATIVE) Urine Blood NEGATIVE (NEGATIVE) Urine Nitrate NEGATIVE (NEGATIVE) Urine Bilirubin NEGATIVE (NEGATIVE) Urine Urobilinogen NEGATIVE EU EU (0.2-1.0) Ur Leukocyte Esterase NEGATIVE (NEGATIVE) Urine RBC NONE SEEN /hpf /hpf (0-3) Urine WBC 1-3 /hpf /hpf (0-3) Ur Epithelial Cells TRACE /lpf /lpf (NONE-1+) Urine Bacteria TRACE /hpf H /hpf (NONE SEEN) Urine Mucus TRACE /lpf /lpf (NONE-1+) Urine Glucose NEGATIVE (NEGATIVE) Medications Given: Discontinued Medications Hydromorphone HCl (Dilaudid) 0.5 mg IVP EDNOW ONE Stop: 05/29/17 19:26 Last Admin: 05/29/17 19:48 Dose: 0.5 mg Hydromorphone HCl (Dilaudid) 0.5 mg IVP EDNOW ONE Stop: 05/29/17 21:02 Last Admin: 05/29/17 21:11 Dose: 0.5 mg Sodium Chloride (Ns) 1,000 mls @ 0 mls/hr IV EDNOW ONE; Wide Open PRN Reason: Protocol Stop: 05/29/17 19:26 Last Admin: 05/29/17 19:48 Dose: 1,000 mls Ondansetron HCl (Zofran) 4 mg IVP EDNOW ONE Stop: 05/29/17 19:54 Last Admin: 05/29/17 19:56 Dose: 4 mg Oxycodone/Acetaminophen (Percocet 5/325mg Prepack#4) 1 btl TAKEHOME EDNOW ONE Stop: 05/29/17 21:27 Last Admin: 05/29/17 21:45 Dose: 1 btl Departure - Departure Disposition: Home, Routine, Self-Care Clinical Impression: Flank pain Condition: Good Instructions: Flank Pain (ED) Additional Instructions: Follow-up with the primary care doctor this week for recheck If symptoms worsen or new symptoms develop return to the emergency room for recheck Referrals: NONE *PRIMARY CARE P,. [Primary Care Provider] - As per Instructions [facility],. [Clinic] - As per Instructions Stand Alone Forms: Work Excuse
[2017-05-29] MEDS ORDERED: OXYCODONE/APAP 5/325MG PREPACK#4 BTL TAKEHOME ONE (21:26)
[2017-05-29 21:48] VITALS: BP 113/69; PULSE 61; RESP 18; TEMP 98.4; O2SAT 94
== END 2017-05-29 21:48 | disposition home or self-care (01) ==
LOC: EEVIPCON 17:14
PROC: 3E0337Z Introduction of Electrolytic and Water Balance Substance into Peripheral Vein, Percutaneous Approach (ICD-10-PCS; principal; 2017-05-29)
DX: R10.9 Unspecified abdominal pain (principal); E86.9 Volume depletion, unspecified; F17.200 Nicotine dependence, unspecified, uncomplicated; Z90.710 Acquired absence of both cervix and uterus; Z91.040 Latex allergy status
CPT/HCPCS: 96374; J1170; J2405

== ENCOUNTER 2017-09-01 16:35 | Emergency (ER) | payer MEDICAID ==
[2017-09-01] MEDS ORDERED: NS 1,000 ML IV ONE (18:13)
[2017-09-01] MEDS ORDERED: fentaNYL 100 MCG/2 ML INJ IVP ONE ×2 (18:15→19:33)
--- NOTE | 2017-09-01 18:23 | EDPHY ---
H & P Time Seen by Provider: 09/01/17 17:32 HPI/ROS: CHIEF COMPLAINT: Vaginal pain HISTORY OF PRESENT ILLNESS: Patient states she has had almost a week of lower abdominal and vaginal pain. She states it started in her lower abdomen bilaterally and has radiated down to the vaginal area. She describes it as stabbing. Initially intermittent and now constant. She is unsure but thinks she has had some vaginal discharge. Noted some blood several days ago. She denies nausea, vomiting, diarrhea or bright red blood per rectum. She is status post hysterectomy that was performed in 2009. Left ovary was removed persistent 2015. No fevers or chills. No rashes. No other recent illnesses. REVIEW OF SYSTEMS: Constitutional: No fever, no chills. Eyes: No discharge. ENT: No sore throat. Cardiovascular: No chest pain, no palpitations. Respiratory: No cough, no shortness of breath. Gastrointestinal: Per HPI Genitourinary: No dysuria. Musculoskeletal: No back pain. Skin: No rashes. Neurological: No headache. General Appearance: Alert, no distress. Obese. Eyes: Pupils equal and round no pallor or injection. ENT, Mouth: Mucous membranes moist. Respiratory: There are no retractions, lungs are clear to auscultation. Cardiovascular: Regular rate and rhythm. Gastrointestinal: Abdomen is soft with [id number] tenderness to palpation bilaterally in the lower abdomen and suprapubic region, no masses, bowel sounds normal. No peritoneal signs. No groin lymphadenopathy. Neurological: Alert, oriented, no focal deficits. Skin: Warm and dry, no rashes. Musculoskeletal: Neck is supple nontender. Extremities are symmetrical, full range of motion, no edema. Psychiatric: Patient is oriented X 3, there is no agitation. Medical/surgical history: Patient is AB1 at 5 months spontaneous miscarriage. Cholecystectomy, multiple knee and wrist surgeries, tonsillectomy. Social history: Does smoke, no EtOH. Currently not sexually active. Smoking Status: Current every day smoker Constitutional: Initial Vital Signs Temperature (C) 36.9 C 09/01/17 16:52 Heart Rate 84 09/01/17 16:52 Respiratory Rate 20 09/01/17 16:52 Blood Pressure 137/83 H 09/01/17 16:52 O2 Sat (%) 98 09/01/17 16:52 O2 Delivery Mode Room Air Allergies/Adverse Reactions: ketorolac tromethamine [From Toradol] Allergy (Verified 05/29/17 17:46) latex Allergy (Verified 05/29/17 17:46) tramadol Allergy (Verified 05/29/17 17:46) tree nut Allergy (Verified 05/29/17 17:46) Home Medications: Medication Instructions Recorded Estrace 05/29/17 Medical Decision Making - Diagnostics Imaging: Discussed imaging studies w/ scallop cutter machine Radiologist ED Course/Re-evaluation: Pelvic exam performed. Normal post hysterectomy vaginal tissue with small amount of whitish discharge. General tenderness. No evidence of bleeding, mass. Differential Diagnosis: Differential diagnosis includes but isn't limited to appendicitis, peritonitis, diverticulitis, constipation, metastatic disease. After evaluation unclear cause for this patient's lower abdominal pain but no signs of surgical abdomen, urinary tract infection, metastatic disease, vaginal infection. Strongly recommended she follow up with OBGYN. Stable for discharge. - Data Points Laboratory Results: Laboratory Results 09/01/17 18:28 09/01/17 18:28 Medications Given: Discontinued Medications Fentanyl (Sublimaze) 50 mcg IVP EDNOW ONE Stop: 09/01/17 18:16 Last Admin: 09/01/17 18:33 Dose: 50 mcg Fentanyl (Sublimaze) 50 mcg IVP EDNOW ONE Stop: 09/01/17 19:34 Last Admin: 09/01/17 19:35 Dose: 50 mcg Sodium Chloride (Ns) 1,000 mls @ 0 mls/hr IV EDNOW ONE; Wide Open PRN Reason: Protocol Stop: 09/01/17 18:14 Last Admin: 09/01/17 18:33 Dose: 1,000 mls Departure - Departure Disposition: Home, Routine, Self-Care Clinical Impression: Lower abdominal pain Condition: Good Instructions: Acute Abdominal Pain (ED) Additional Instructions: Follow-up with OBGYN without fail in the next 1-2 weeks. Also you should establish a primary care physician area. Return to the emergency department if your symptoms become significantly worse or he develops other new or concerning symptoms. Referrals: NONE *PRIMARY CARE P,. [Primary Care Provider] - As per Instructions Belén Gresham MD [Medical Doctor] - As per Instructions
[2017-09-01 18:39] LABS: PLATELET COUNT 265 10^3/uL (150-400)
[2017-09-01] MEDS ORDERED: IOPAMIDOL (ISOVUE-300) 100 ML BTL ONE (18:59)
[2017-09-01] MEDS ORDERED: fentaNYL 100 MCG/2 ML INJ ONE (19:30)
[2017-09-01 20:29] VITALS: BP 122/66
== END 2017-09-01 20:46 | disposition home or self-care (01) ==
DX: R10.30 Lower abdominal pain, unspecified (principal); E86.9 Volume depletion, unspecified; F17.200 Nicotine dependence, unspecified, uncomplicated; Z90.49 Acquired absence of other specified parts of digestive tract; Z91.040 Latex allergy status
CPT/HCPCS: 96374; J3010; Q9967

== ENCOUNTER 2018-01-20 19:31 | Emergency (ER) | payer MEDICAID ==
[2018-01-20] MEDS ORDERED: OXYCODONE/APAP 5/325 TAB PO ONE (20:02)
[2018-01-20] MEDS ORDERED: HYDROmorphONE/DILAUDID 1 MG/ML INJ IVP ONE ×2 (20:06→21:54)
[2018-01-20] MEDS ORDERED: ONDANSETRON 4 MG/2 ML VIAL IVP ONE ×2 (20:06→21:54)
--- NOTE | 2018-01-20 20:06 | EDPHY ---
H & P Stated Complaint: Fall a month ago now having increase tailbone pain - Personal History LMP (Females 10-55): Hysterectomy Current Tetanus/Diphtheria Vaccine: Yes Current Tetanus Diphtheria and Acellular Pertussis (TDAP): Yes Tetanus Vaccine Date: 2013 - Medical/Surgical History Hx Asthma: No Hx Chronic Respiratory Disease: No Hx Diabetes: No Hx Cardiac Disease: No Hx Renal Disease: No Hx Cirrhosis: No Hx Alcoholism: No Hx HIV/AIDS: No Hx Splenectomy or Spleen Trauma: No Other PMH: hysterectomy, AGUSTIN knee surgery, AGUSTIN wrist surgery, umbilical henia repair, back/tailbone surgery - Social History Smoking Status: Current every day smoker Time Seen by Provider: 01/20/18 19:48 HPI/ROS: CHIEF COMPLAINT: Continued low back and buttock pain HISTORY OF PRESENT ILLNESS: 32-year-old immunocompetent female via private vehicle complaining of continued low back and sacral and coccygeal pain since sustained a mechanical fall 1 month ago. She seen the ER on 12/30/2017 for similar complaints, had a negative lumbar x-ray. She states that the pain continues and she has noticed new pain with defecation described as a pain "inside" her buttock. The pain is not described as perianal pain. No hematochezia, no melena. No fever or chills. No nausea or vomiting. No abdominal pain. PRIMARY CARE PROVIDER: REVIEW OF SYSTEMS: 10 systems reviewed and negative with the exception of the elements mentioned in the history of present illness PAST MEDICAL & SURGICAL HISTORY: No pertinent medical or surgical history SOCIAL HISTORY: PHYSICAL EXAM (Prior to examination, patient consented to physical exam, hands were washed and my usual and customary physical exam procedures followed) 1) GENERAL: Alert and oriented. Appears appears uncomfortable, crying, laying in a right lateral decubitus position unable to lie flat on her buttock secondary to pain. 2) HEAD: Normocephalic, atraumatic 3) HEENT: Pupils equal, round, reactive to light bilaterally. Sclera anicteric. Nasopharynx, oropharynx, clear, no lesions. MoistDry mucous membranes. Ears bilaterally with normal tympanic membranes. 4) NECK: Full range of motion, no meningeal signs. 5) LUNGS: Clear auscultation bilaterally, no wheezes, no rhonchi, no retractions. 6) HEART: Regular rate and rhythm, no murmur, no heave, no gallop. 7) ABDOMEN: No guarding, no rebound, no focal tenderness, negative McBurney's, negative Lindquist's, negative Rovsing's, negative peritoneal sign, 8) MUSCULOSKELETAL: Buttock examination with denia Valdivia at bedside reveals no visible abnormality, no erythema no induration, no signs of pilonidal cyst or abscess or cellulitis. She is tender to palpation the sacrum with no visible abnormality. Positive midline tenderness to the lumbar region with no step-off no effusion. Bilateral lower extremities have patella and Achilles reflexes intact to bilateral strength 5/5. Moving all extremities, no focal areas of tenderness, no obvious trauma. No peripheral edema or discoloration. 9) BACK: No CVA tenderness, no midline vertebral tenderness, no fluctuance, no step-off, no obvious trauma, no visual or palpable abnormality. 10) SKIN: No rash, no petechiae. 11) Psychiatric: Patient is oriented X 3, there is no agitation. DIFFERENTIAL DIAGNOSIS: In no particular order including but not limited to perirectal abscess, pilonidal abscess or cyst, sacral fracture, coccygeal fracture, lumbar fracture (Stephanie,Jeanette Martha) Constitutional: Initial Vital Signs Temperature (C) 36.8 C 01/20/18 19:32 Heart Rate 96 01/20/18 19:32 Respiratory Rate 18 01/20/18 19:32 Blood Pressure 127/98 H 01/20/18 19:32 O2 Sat (%) 98 01/20/18 19:32 O2 Delivery Mode Nasal Cannula O2 (L/minute) 2 Allergies/Adverse Reactions: ketorolac [From Toradol] Allergy (Verified 01/20/18 19:36) ketorolac tromethamine [From Toradol] Allergy (Verified 01/20/18 19:36) latex Allergy (Verified 01/20/18 19:36) tramadol Allergy (Verified 01/20/18 19:36) tree nut Allergy (Verified 01/20/18 19:36) Home Medications: Medication Instructions Recorded Estrogens,Conjugated 12/19/17 Hydrocodone/APAP 5/325 [Mahomet 1 tab PO Q6 PRN #15 tab 09/02/18 5/325 (RX)] Medical Decision Making - Diagnostics Imaging Results: Images reviewed myself (Jeanette Brown) ED Course/Re-evaluation: 8:06 p.m.: Patient complaining of continued sacral pain as well as pain with defecation. We discussed possibility of perirectal abscess. This has been ongoing issue for several weeks. Recommended CT imaging. Indications risks benefits discussed with patient she is agreeable and consents. I saw this patient independently based on established practice protocols. Care of patient under supervision of secondary supervising physician Dr Jasso with whom I discussed case. Patient was re-evaluated with serial examinations we discussed the imaging results showing a mass in the moustapha sacral region, the etiology of which is incompletely clear at this time. In consultation with radiologist this is not appear to be an abscess or definitive fluid collection. On exam of patient's there is no area black identified to perform aspiration and the findings both clinically and radiographically are not consistent with pilonidal abscess. Her pain is controlled. I recommend she follow up with surgery. She feels comfortable with this plan. (Jeanette Brown) Other Provider: The patient was evaluated and managed by the Physician Station Agent. I discussed the patient's presentation and course with the midlevel provider with them and agree with the evaluation. My co-signature indicates that I have reviewed this chart and I agree with the findings and plan of care as documented. I am the secondary supervising physician. (Katiuska Jasso) - Data Points Laboratory Results: Laboratory Results 01/20/18 20:40 01/20/18 20:40 Medications Given: Discontinued Medications Hydrocodone Bitart/Acetaminophen (Mahomet 5/325mg Prepack#6) 1 btl TAKEHOME EDNOW ONE Stop: 01/20/18 23:09 Last Admin: 01/20/18 23:11 Dose: 1 btl Hydromorphone HCl (Dilaudid) 1 mg IVP EDNOW ONE Stop: 01/20/18 20:07 Last Admin: 01/20/18 20:43 Dose: 1 mg Hydromorphone HCl (Dilaudid) 1 mg IVP EDNOW ONE Stop: 01/20/18 21:55 Last Admin: 01/20/18 21:57 Dose: 1 mg Ondansetron HCl (Zofran) 4 mg IVP EDNOW ONE Stop: 01/20/18 20:07 Last Admin: 01/20/18 20:43 Dose: 4 mg Ondansetron HCl (Zofran) 4 mg IVP EDNOW ONE Stop: 01/20/18 21:55 Last Admin: 01/20/18 21:56 Dose: 4 mg Oxycodone/Acetaminophen (Percocet 5/325) 1 tab PO EDNOW ONE Stop: 01/20/18 20:03 Last Admin: 01/20/18 20:46 Dose: Not Given Point of Care Test Results: Chemistry 01/20/18 20:47 POC Sodium 142 mEq/L mEq/L (135-145) POC Potassium 3.6 mEq/L mEq/L (3.3-5.0) POC Chloride 105 mEq/L mEq/L (97-110) POC BUN 18 mg/dL mg/dL (7-23) POC Creatinine 1.0 mg/dL mg/dL (0.6-1.0) POC Glucose 87 mg/dL mg/dL (70-100) ISTAT H&H 01/20/18 20:47 POC Hgb 12.9 gm/dL gm/dL (12.6-16.3) POC Hct 38 % % (38-47) Departure - Departure Disposition: Home, Routine, Self-Care Clinical Impression: Sacral pain Condition: Good Instructions: Hydrocodone/Acetaminophen (By mouth), Back Pain (ED) Additional Instructions: Seek medical attention if you develop new or worsening pain, if you develop bladder or bowel dysfunction, numbness around your perineum, foot drop, or any other symptoms that concern you. Referrals: Remigio Akhtar MD [Medical Doctor] - As per Instructions (Dr. Remigio Akhtar is a general surgeon) Aiden Webb MD [Medical Doctor] - 2-3 days, call for appt. (Dr. Wolfe is a spine surgeon) Prescriptions: Hydrocodone/APAP 5/325 [Mahomet 5/325 (RX)] 1 tab PO Q6 PRN #15 tab PRN Reason: Pain, Severe
[2018-01-20 21:17] LABS: PLATELET COUNT 295 10^3/uL (150-400)
[2018-01-20] MEDS ORDERED: IOPAMIDOL (ISOVUE-300) 100 ML BTL ONE (21:30)
[2018-01-20 22:19] VITALS: BP 127/80
[2018-01-20] MEDS ORDERED: HYDROCOD/APAP 5/325 PREPACK#6 BTL TAKEHOME ONE ×2 (23:07→23:08)
== END 2018-01-20 23:14 | disposition home or self-care (01) ==
DX: M53.3 Sacrococcygeal disorders, not elsewhere classified (principal); F17.200 Nicotine dependence, unspecified, uncomplicated
CPT/HCPCS: 82435-PO; 82565-PO; 82947-PO; 84132-PO; 84295-PO; 84520-PO; 85014-PO; 96374; J1170; J2405; Q9967

== ENCOUNTER 2018-01-26 18:02 | Emergency (ER) | payer MEDICAID ==
[2018-01-26] MEDS ORDERED: HYDROmorphONE/DILAUDID 2 MG/ML INJ IVP ONE (18:36)
[2018-01-26] MEDS ORDERED: ONDANSETRON 4 MG/2 ML VIAL IVP ONE (18:36)
--- NOTE | 2018-01-26 18:49 | EDPHY ---
H & P Stated Complaint: tailbone injury last week, pain getting worse Time Seen by Provider: 01/26/18 18:27 HPI/ROS: CHIEF COMPLAINT: Tailbone pain HISTORY OF PRESENT ILLNESS: 32-year-old female presents with severe pain in the tailbone. She fell onto her buttocks 12/30/2017. Had moderate pain since then. The pain gradually increased and was she was seen in this emergency department on 01/20/2018. CT scan of the abdomen and pelvis revealed a 3 x 4 cm density just posterior to the sacrococcygeal junction. White blood cell count 13 during that visit. She was sent home with hydrocodone. Since then the pain has gradually increased and is now unbearable. Associated with fever over the last 4 days. Denies abuse. REVIEW OF SYSTEMS: complete 10 point ROS negative except at noted in the HPI - Personal History Current Tetanus/Diphtheria Vaccine: Yes Current Tetanus Diphtheria and Acellular Pertussis (TDAP): Yes Tetanus Vaccine Date: 2013 - Medical/Surgical History Hx Asthma: No Hx Chronic Respiratory Disease: No Hx Diabetes: No Hx Cardiac Disease: No Hx Renal Disease: No Hx Cirrhosis: No Hx Alcoholism: No Hx HIV/AIDS: No Hx Splenectomy or Spleen Trauma: No Other PMH: hysterectomy, AGUSTIN knee surgery, AGUSTIN wrist surgery, umbilical henia repair, back/tailbone surgery, obesity - Social History Smoking Status: Current every day smoker Alcohol Use: Sober - Physical Exam Exam: General Appearance: Alert, pleasant, appears in severe pain Eyes: Pupils equal and round, no conjunctival pallor or injection ENT, Mouth: Mucous membranes moist Neck: Normal inspection Respiratory: Lungs are clear to auscultation Cardiovascular: Regular rate and rhythm Gastrointestinal: Abdomen is soft and nontender Buttocks: exquisite tenderness in the gluteal fold approx 3cm posterior to anus , skin is denuded along the gluteal fold, no erythema or swelling Neurological: A&O, nonfocal exam Skin: Warm and dry Extremities: Nontender, no pedal edema Psychiatric: Mood and affect normal Constitutional: Initial Vital Signs Temperature (C) 37 C 01/26/18 18:03 Heart Rate 105 H 01/26/18 18:03 Respiratory Rate 18 01/26/18 18:03 Blood Pressure 141/102 H 01/26/18 18:03 O2 Sat (%) 92 01/26/18 18:03 O2 Delivery Mode Room Air Allergies/Adverse Reactions: ketorolac [From Toradol] Allergy (Verified 01/26/18 18:03) ketorolac tromethamine [From Toradol] Allergy (Verified 01/26/18 18:03) latex Allergy (Verified 01/26/18 18:03) tramadol Allergy (Verified 01/26/18 18:03) tree nut Allergy (Verified 01/26/18 18:03) Home Medications: Medication Instructions Recorded Estrogens,Conjugated 12/19/17 Hydrocodone/APAP 5/325 [[place] 1 tab PO Q6 PRN #15 tab 01/20/18 5/325 (RX)] Amoxicillin/Clavulanate Pot 875 mg PO BID #20 tab 01/26/18 [Augmentin 875 MG TAB (RX)] oxyCODONE/APAP 5/325 [Percocet 1 tab PO Q4 PRN #15 tab 01/26/18 5/325 (*)] Medical Decision Making Procedures: Procedure: Abscess drainage attempt. The patient's probable abscess was located on the gluteal fold. Risks, benefits , alternatives discussed with the patient and consent obtained. The abscess was incised with a #11 blade and no purulent drainage expressed. The patient tolerated the procedure well. The procedure was performed by myself. ED Course/Re-evaluation: This patient presents with increasing pain in the gluteal fold, now with fever and chills. I reviewed the CT scan from last week. This reveals a fluid collection in the sacrococcygeal area, corresponding to the area of maximal tenderness. Given recent trauma, I suspect that she has an infected hematoma. Dilaudid 1mg IV given. Incision and drainage attempted, but I was unable to obtain any fluid. I consulted Dr. Clay Gutierrez, who saw the patient in the emergency department. He extended the incision and was unable to express purulent fluid. Pt now states that this area has been draining, though no obvious site of drainage on exam. We will place the patient on antibiotics and she will follow up in the office with Dr. Gutierrez on Sunday. Ceftriaxone and Flagyl IV given prior to discharge home. Differential Diagnosis: Includes does not limited to infected hematoma, abscess, perirectal abscess, seroma, fracture. - Data Points Laboratory Results: Laboratory Results 01/26/18 18:40 01/26/18 18:40 Medications Given: Discontinued Medications Hydromorphone HCl (Dilaudid) 1 mg IVP EDNOW ONE Stop: 01/26/18 18:37 Last Admin: 01/26/18 18:52 Dose: 1 mg Hydromorphone HCl (Dilaudid) 1 mg IVP EDNOW ONE Stop: 01/26/18 19:34 Last Admin: 01/26/18 19:49 Dose: 0.5 mg Hydromorphone HCl (Dilaudid) 0.5 mg IVP EDNOW ONE Stop: 01/26/18 21:09 Last Admin: 01/26/18 21:12 Dose: 0.5 mg Ceftriaxone Sodium/Dextrose (Rocephin 1 Gm (Premix)) 50 mls @ 100 mls/hr IV EDNOW ONE PRN Reason: Protocol Stop: 01/26/18 20:33 Last Admin: 01/26/18 20:16 Dose: 50 mls Metronidazole/Sodium Chloride (Flagyl 500 Mg (Premix)) 100 mls @ 100 mls/hr IV EDNOW ONE PRN Reason: Protocol Stop: 01/26/18 21:03 Last Admin: 01/26/18 20:29 Dose: 100 mls Ondansetron HCl (Zofran) 4 mg IVP EDNOW ONE Stop: 01/26/18 18:37 Last Admin: 01/26/18 18:52 Dose: 4 mg Oxycodone/Acetaminophen (Percocet 5/325) 2 tab PO EDNOW ONE Stop: 01/26/18 21:09 Last Admin: 01/26/18 21:12 Dose: 2 tab Oxycodone/Acetaminophen (Percocet 5/325mg Prepack#4) 1 btl TAKEHOME EDNOW ONE Stop: 01/26/18 21:47 Last Admin: 01/26/18 21:50 Dose: 1 btl Departure - Departure Disposition: Home, Routine, Self-Care Clinical Impression: Phlegmon Condition: Good Instructions: Oxycodone/Acetaminophen (By mouth), Abscess (ED) Additional Instructions: Return for worsening symptoms or any concerns. Sit in a warm bath 3-4 times daily. Your blood sugar is running high today. Have your blood sugar rechecked when you are feeling better. Referrals: Clay Gutierrez MD [Medical Doctor] - 2-3 days without fail () Prescriptions: Amoxicillin/Clavulanate Pot [Augmentin 875 MG TAB (RX)] 875 mg PO BID #20 tab oxyCODONE/APAP 5/325 [Percocet 5/325 (*)] 1 tab PO Q4 PRN #15 tab PRN Reason: pain
[2018-01-26 18:58] LABS: PLATELET COUNT 274 10^3/uL (150-400)
[2018-01-26] MEDS ORDERED: HYDROmorphONE/DILAUDID 1 MG/ML INJ ONE (19:32)
[2018-01-26] MEDS ORDERED: HYDROmorphONE/DILAUDID 1 MG/ML INJ IVP ONE ×2 (19:33→21:08)
--- NOTE | 2018-01-26 20:35 | GCON ---
DATE OF CONSULTATION: 01/26/2018 REFERRING PHYSICIAN: Erin Restrepo MD REASON FOR ADMISSION: Buttock pain. 32-year-old, severely obese female, sustained a fall in her bathtub on December 26. She has had progressive worsening pain. She has had multiple ED visits pertaining to her pain. She was seen in the emergency department on January 20. CT imaging was performed at that time disclosing a probable 4 cm hematoma. The patient re-presents to the emergency room today with progressively worsening symptoms and fever over the last few days. She does report that the wound has been draining old bloody fluid over the last number of days. She denies voiding complaints. She denies pain with defecation. PAST MEDICAL HISTORY: Obesity. PAST SURGICAL HISTORY: Hysterectomy, bilateral knee surgery, bilateral wrist surgery, umbilical hernia repair, pilonidal cystectomy. MEDICATIONS: Oral contraceptives. ALLERGIES: Toradol, latex. SOCIAL: Employed as a caregiver. PHYSICAL EXAM: VITAL SIGNS: Temperature 37, blood pressure 140/100. Blood pressure on admission 130/98, heart rate 96, respirations 18. GENERAL: The patient is alert, appropriate, uncomfortable. HEART: Regular. LUNGS: Clear. ABDOMEN: Obese, soft, nontender. SKIN: Healed prior pilonidal cystectomy incision with a central dimple. Skin erosion over the distal coccyx with notable weeping. A small incision had been created by the emergency room physician, where the wound was previously probed, without evidence of purulence. Additional local anesthetic inclusive of 30 cc of 1% lidocaine and Marcaine were infiltrated around the area. Using an 18-gauge needle, the area was diffusely probed down toward the coccyx. No fluid was retrieved at any point. This was the epicenter of her tenderness. LABORATORY DATA: White count 13, hemoglobin 13, platelets 274. Electrolytes within reference range. CT images were reviewed on PACS from January 20, showing a subcutaneous fluid collection. No fracture line is noted along the coccyx. IMPRESSION: Persistent sacrococcygeal pain, status post blunt trauma. No identifiable or discernible abscess noted with direct wound examination, query phlegmon vs fracture. Less likely osteomyelitis.. PLAN: Will initiate an antibiotic trial with oral analgesics and office followup next week. Prior ED logs later reviewed. The patient is noted to have extensive prior ED visits inclusive of multiple falls and pain episodes. Current pain complaints appear somewhat greater than would be expected as it relates to her remote trauma. Final recommendations to be determined. If symptoms fail to improve, MRI reimaging may be warranted. /[id number]/MODL KOBE
[2018-01-26] MEDS ORDERED: OXYCODONE/APAP 5/325 TAB PO ONE (21:08)
[2018-01-26] MEDS ORDERED: OXYCODONE/APAP 5/325MG PREPACK#4 BTL TAKEHOME ONE (21:46)
[2018-01-26 21:51] VITALS: BP 124/73
== END 2018-01-26 21:55 | disposition home or self-care (01) ==
PROC: 0H98XZZ Drainage of Buttock Skin, External Approach (ICD-10-PCS; principal; 2018-01-26)
DX: L02.31 Cutaneous abscess of buttock (principal); F17.200 Nicotine dependence, unspecified, uncomplicated
CPT/HCPCS: 96365; J0696; J1170; J2405

== ENCOUNTER 2018-02-10 18:51 | Emergency (ER) | payer MEDICAID ==
[2018-02-10] MEDS ORDERED: NS 1,000 ML IV ONE (19:36)
[2018-02-10] MEDS ORDERED: HYDROmorphONE/DILAUDID 2 MG/ML INJ IVP ONE ×3 (19:36→21:01)
--- NOTE | 2018-02-10 19:41 | EDPHY ---
H & P <Rachel Gomez - Last Filed: 02/11/18 05:01> Stated Complaint: loss of control over urine Source: Patient Exam Limitations: No limitations - Personal History LMP (Females 10-55): Hysterectomy Current Tetanus/Diphtheria Vaccine: Unsure Current Tetanus Diphtheria and Acellular Pertussis (TDAP): Unsure Tetanus Vaccine Date: 2013 - Medical/Surgical History Hx Asthma: No Hx Chronic Respiratory Disease: No Hx Diabetes: No Hx Cardiac Disease: No Hx Renal Disease: No Hx Cirrhosis: No Hx Alcoholism: No Hx HIV/AIDS: No Hx Splenectomy or Spleen Trauma: No Other PMH: hysterectomy, AGUSTIN knee surgery, AGUSTIN wrist surgery, umbilical henia repair, pilonidal cystectomy, obesity - Family History Significant Family History: No pertinent family hx - Social History Smoking Status: Current every day smoker Alcohol Use: Sober Drug Use: None <Dharmesh Blanchard - Last Filed: 02/11/18 06:53> Time Seen by Provider: 02/10/18 19:23 HPI/ROS: CHIEF COMPLAINT: Low back pain, incontinence HISTORY OF PRESENT ILLNESS: Patient is a 32-year-old obese female who fell in her bathtub on December 26. She had multiple ED visits secondary to pain after that fall. On January 20 imaging was performed that showed a probable hematoma versus phlegmon to the region. She returned again on January 26 and at that point had an unsuccessful I and D and surgery was consulted. She was placed on Augmentin which she finished about a week ago. It was unclear whether this was a phlegmon versus hematoma. She states however that her pain has remained and that over the last week she has been frequently incontinent of urine and tries to go to the bathroom every 20 min to avoid urinating in her pants. She also has had incontinence of stool once per day. No fevers. No new trauma. She is able to ambulate but has pain with bearing weight. She complains of some paresthesias to her right foot. Also to her groin. She does have a history of pilonidal cystectomy in the region at age 12. Severity: Severe Modifying factors: Increased pain with movement REVIEW OF SYSTEMS: Constitutional: denies: chills, fever, recent illness, recent injury EENTM: denies: blurred vision, double vision, nose congestion Respiratory: denies: cough, shortness of breath Cardiac: denies: chest pain, irregular heart rate, lightheadedness, palpitations Gastrointestinal/Abdominal: denies: abdominal pain, diarrhea, nausea, vomiting, blood streaked stools Genitourinary: denies: dysuria, frequency, hematuria, pain Musculoskeletal: See HPI Skin: denies: lesions, rash, jaundice, bruising Neurological: See HPI denies: headache, dizziness, weakness Hematologic/Lymphatic: denies: blood clots, easy bleeding, easy bruising Immunologic/allergic: denies: HIV/AIDS, transplant 10 systems reviewed and negative except as noted EXAM: GENERAL: Well-appearing, well-nourished and in no acute distress. HEAD: Atraumatic, normocephalic. EYES: Pupils equal round and reactive to light, extraocular movements intact, sclera anicteric, conjunctiva are normal. ENT: TMs normal, nares patent, oropharynx clear without exudates. Moist mucous membranes. NECK: Normal range of motion, supple without lymphadenopathy or JVD. LUNGS: Breath sounds clear to auscultation bilaterally and equal. No wheezes rales or rhonchi. HEART: Regular rate and rhythm without murmurs, rubs or gallops. ABDOMEN: Soft, nontender, normoactive bowel sounds. No guarding, no rebound. No masses appreciated. BACK: No CVA tenderness, no spinal tenderness, step-offs or deformities no visible wounds or swelling to low back or gluteal cleft region. EXTREMITIES: Normal range of motion, no pitting or edema. No clubbing or cyanosis. NEUROLOGICAL: Cranial nerves II through XII grossly intact. Normal speech, normal gait but with pain. Able to stand on toes and balance on heels and left 1 ft at a time. Complains of subjective paresthesias in her right foot and saddle anesthesia. 5/5 strength, normal movement in all extremities, normal sensation, normal reflexes PSYCH: Normal mood, normal affect. SKIN: Warm, dry, normal turgor, no visible rashes or lesions. (Dharmesh Blanchard) Constitutional: Initial Vital Signs Temperature (C) 37.1 C 02/10/18 19:01 Heart Rate 103 H 02/10/18 19:01 Respiratory Rate 16 02/10/18 19:01 Blood Pressure 114/90 H 02/10/18 19:01 O2 Sat (%) 97 02/10/18 19:01 O2 Delivery Mode Room Air Allergies/Adverse Reactions: ketorolac [From Toradol] Allergy (Verified 01/26/18 18:03) ketorolac tromethamine [From Toradol] Allergy (Verified 01/26/18 18:03) latex Allergy (Verified 01/26/18 18:03) tramadol Allergy (Verified 01/26/18 18:03) tree nut Allergy (Verified 01/26/18 18:03) Home Medications: Medication Instructions Recorded Estrogens,Conjugated 12/19/17 Hydrocodone/APAP 5/325 [[place] 1 tab PO Q6 PRN #15 tab 01/20/18 5/325 (RX)] Amoxicillin/Clavulanate Pot 875 mg PO BID #20 tab 01/26/18 [Augmentin 875 MG TAB (RX)] oxyCODONE/APAP 5/325 [Percocet 1 tab PO Q4 PRN #15 tab 01/26/18 5/325 (*)] Medical Decision Making - Diagnostics Imaging: Discussed imaging studies w/ callisthenics instructor Radiologist <Rachel Gomez - Last Filed: 02/11/18 05:01> <Dharmesh Blanchard - Last Filed: 02/11/18 06:53> - Diagnostics Imaging Results: Imaging Impressions Lumbar Spine MRI 02/10/18 19:34 Impression: Negative MRI of the lumbar spine with no canal stenosis, tethering of the cord or compression of the conus medullaris. There is been no significant change from the March 2017 study. Results called and discussed with Dr. Gomez on 02/10/2018 at 22:44. Pelvis MRI 02/10/18 20:00 Impression: Negative pelvic ultrasound with no source for sacral pain identified. Results called and discussed with Dr. Gomez on 02/10/2018 at 22:51. ED Course/Re-evaluation: 11:00 p.m.- The patient had her MRI performed which is entirely unremarkable and unchanged from a prior MRI of her chart. She has multiple ED visits for pain related complaints and also goes to several other local emergency department. I am also concerned that there is some secondary gain contributing to her ER visits, and medication seeking behavior. I explained to her that her pain is most likely muscular. I explained that she cannot keep coming to the ER for these sorts of complaints and that she should follow up with primary care. Her Medicaid was just reinstated, I have encouraged her to seek [facility]. I have left a note for the rn field case manager to this effect. I have advised her that we cannot give her opiate pain medication through the emergency department in the future. (Rachel Gomez) 9:00 p.m. patient is an MRI. She has requested a 2nd dose of Dilaudid. I will transfer care to Dr. Aryan Barbour with MRI results pending. Patient was able to ambulate with pain for me. She is able to lift both feet off the ground 1 at a time. She was able to balance on her toes. I do not see any objective neurologic deficits although she does complain of subjective neurologic deficits. (Dharmesh Blanchard) Differential Diagnosis: Partial list of the Differential diagnosis considered include but were not limited to; radiculopathy, hematoma, fracture, opiate addiction, infection and although unlikely based on the history and physical exam, I also considered fistula, abscess. (Dharmesh Blanchard) - Data Points Laboratory Results: Laboratory Results 02/10/18 19:24 02/10/18 19:24 02/10/18 02/10/18 02/10/18 19:50 19:24 19:24 WBC 12.93 10^3/uL H 10^3/uL (3.80-9.50) RBC 4.58 10^6/uL 10^6/uL (4.18-5.33) Hgb 13.1 g/dL g/dL (12.6-16.3) Hct 40.0 % % (38.0-47.0) MCV 87.3 fL fL (81.5-99.8) MCH 28.6 pg pg (27.9-34.1) MCHC 32.8 g/dL g/dL (32.4-36.7) RDW 14.6 % % (11.5-15.2) Plt Count 291 10^3/uL 10^3/uL (150-400) MPV 10.6 fL fL (8.7-11.7) Neut % (Auto) 65.7 % % (39.3-74.2) Lymph % (Auto) 26.2 % % (15.0-45.0) [place] % (Auto) 5.3 % % (4.5-13.0) Eos % (Auto) 1.9 % % (0.6-7.6) Baso % (Auto) 0.4 % % (0.3-1.7) Nucleat RBC Rel Count 0.0 % % (0.0-0.2) Absolute Neuts (auto) 8.50 10^3/uL H 10^3/uL (1.70-6.50) Absolute Lymphs (auto) 3.39 10^3/uL H 10^3/uL (1.00-3.00) Absolute Monos (auto) 0.69 10^3/uL 10^3/uL (0.30-0.80) Absolute Eos (auto) 0.24 10^3/uL 10^3/uL (0.03-0.40) Absolute Basos (auto) 0.05 10^3/uL 10^3/uL (0.02-0.10) Absolute Nucleated RBC 0.00 10^3/uL 10^3/uL (0-0.01) Immature Gran % 0.5 % % (0.0-1.1) Immature Gran # 0.06 10^3/uL 10^3/uL (0.00-0.10) VBG Lactic Acid 1.3 mmol/L mmol/L (0.7-2.1) Sodium 142 mEq/L mEq/L (135-145) Potassium 4.0 mEq/L mEq/L (3.3-5.0) Chloride 105 mEq/L mEq/L (97-110) Carbon Dioxide 26 mEq/l mEq/l (22-31) Anion Gap 11 mEq/L mEq/L (8-16) BUN 14 mg/dL mg/dL (7-23) Creatinine 0.8 mg/dL mg/dL (0.6-1.0) Estimated GFR > 60 Glucose 89 mg/dL mg/dL (70-100) Calcium 9.7 mg/dL mg/dL (8.5-10.4) Total Bilirubin 0.4 mg/dL mg/dL (0.1-1.4) Conjugated Bilirubin 0.1 mg/dL mg/dL (0.0-0.5) Unconjugated Bilirubin 0.3 mg/dL mg/dL (0.0-1.1) AST 19 IU/L IU/L (14-46) ALT 30 IU/L IU/L (9-52) Alkaline Phosphatase 63 IU/L IU/L (38-126) Total Protein 7.7 g/dL g/dL (6.3-8.2) Albumin 4.2 g/dL g/dL (3.5-5.0) Medications Given: Discontinued Medications Hydromorphone HCl (Dilaudid) 1 mg IVP EDNOW ONE Stop: 02/10/18 19:37 Last Admin: 02/10/18 19:42 Dose: 1 mg Hydromorphone HCl (Dilaudid) 1 mg IVP EDNOW ONE Stop: 02/10/18 21:02 Last Admin: 02/10/18 21:09 Dose: 1 mg Hydromorphone HCl (Dilaudid) 1 mg IVP EDNOW ONE Stop: 02/10/18 21:02 Last Admin: 02/10/18 21:09 Dose: Not Given Sodium Chloride (Ns) 1,000 mls @ 0 mls/hr IV EDNOW ONE; Wide Open PRN Reason: Protocol Stop: 02/10/18 19:37 Last Admin: 02/10/18 19:41 Dose: 1,000 mls Departure <Rachel Gomez - Last Filed: 02/11/18 05:01> <Dharmesh Blanchard - Last Filed: 02/11/18 06:53> - Departure Disposition: Home, Routine, Self-Care Clinical Impression: Back pain Qualifiers: Back pain location: low back pain Chronicity: acute Back pain laterality: midline Sciatica presence: without sciatica Qualified Code(s): M54.5 - Low back pain Urinary incontinence Qualifiers: Urinary Incontinence type: unspecified incontinence Qualified Code(s): R32 - Unspecified urinary incontinence Condition: Good Instructions: Acute Low Back Pain (ED) Additional Instructions: Your MRI today was normal. You need to seek care with a primary care doctor and avoid coming to the emergency department so much. The cause of your back pain is not entirely clear but likely is a muscle strain. We have not identified any serious cause of your pain. We will not be able to give you any opiate pain medications any longer in the emergency department because this is dangerous to your health. I am going to put a note in her chart stating this. Referrals: [facility],. [Clinic] - As per Instructions
[2018-02-10 19:42] LABS: PLATELET COUNT 291 10^3/uL (150-400)
[2018-02-10] MEDS ORDERED: GADOBUTROL 10 ML VIAL IVP ONE (21:22)
[2018-02-10 22:46] VITALS: BP 86/50
--- NOTE | 2018-02-11 16:11 | ASMTCMCOM ---
CM Note CM Note Notes: See ER report and addendum from vist on 02/10/18. Patient contacted and appointment scheduled with Dr. Jeffery Akhtar on February 20 @ 2:45 PM. This appointment was scheduled on a date and time requested by patient. Patient informed of appointment details including address and phone number of Dr. Akhtar' office Date Signed: 02/11/2018 04:10 PM Electronically Signed By:Mendy Mercado RN
== END 2018-02-10 23:07 | disposition home or self-care (01) ==
DX: R32 Unspecified urinary incontinence (principal); M79.89 Other specified soft tissue disorders; R15.9 Full incontinence of feces; R20.2 Paresthesia of skin; E86.9 Volume depletion, unspecified; E66.9 Obesity, unspecified; F17.200 Nicotine dependence, unspecified, uncomplicated
CPT/HCPCS: 96374; A9585; J1170

== ENCOUNTER 2018-02-13 13:00 | Emergency (ER) | payer MEDICAID ==
[2018-02-13 13:08] VITALS: BP 118/91
--- NOTE | 2018-02-13 13:23 | EDPHY ---
H & P Stated Complaint: back pain Time Seen by Provider: 02/13/18 13:10 HPI/ROS: CHIEF COMPLAINT: Back pain, recently diagnosed with 5 cm subcutaneous mass by sacrum. HISTORY OF PRESENT ILLNESS: The patient was recently diagnosed with 5 cm subcutaneous mass in the tissues by her sacrum. The patient was referred to a surgeon in [place] however apparently was declined outpatient follow-up secondary to her Medicaid status being out of state. Patient presents to the ED requesting surgical referral. She does live in [place] and has Medicaid in [facility]. REVIEW OF SYSTEMS: A comprehensive 10 point review of systems is otherwise negative aside from elements mentioned in the history of present illness. Source: Patient Exam Limitations: No limitations - Personal History LMP (Females 10-55): Hysterectomy Current Tetanus/Diphtheria Vaccine: Yes Current Tetanus Diphtheria and Acellular Pertussis (TDAP): Yes Tetanus Vaccine Date: 2013 - Medical/Surgical History Hx Asthma: No Hx Chronic Respiratory Disease: No Hx Diabetes: No Hx Cardiac Disease: No Hx Renal Disease: No Hx Cirrhosis: No Hx Alcoholism: No Hx HIV/AIDS: No Hx Splenectomy or Spleen Trauma: No Other PMH: hysterectomy, AGUSTIN knee surgery, AGUSTIN wrist surgery, umbilical henia repair, pilonidal cystectomy, obesity - Social History Smoking Status: Current every day smoker - Physical Exam Exam: General Appearance: Obese female, no acute distress Eyes: Pupils equal and round no pallor or injection ENT, Mouth: Mucous membranes moist Respiratory: There are no retractions, lungs are clear to auscultation Cardiovascular: Regular rate and rhythm Gastrointestinal: Abdomen is soft and nontender, no masses, bowel sounds normal Neurological: A&O, normal motor function, normal sensory exam, normal cranial nerves Skin: Warm and dry, no rashes Musculoskeletal: Tenderness to palpation over the sacral mass Extremities: symmetrical, full range of motion Psychiatric: Patient is oriented X 3, there is no agitation Constitutional: Initial Vital Signs Temperature (C) 36.9 C 02/13/18 13:06 Heart Rate 107 H 02/13/18 13:06 Respiratory Rate 16 02/13/18 13:06 Blood Pressure 118/91 H 02/13/18 13:06 O2 Sat (%) 94 02/13/18 13:06 O2 Delivery Mode Room Air Allergies/Adverse Reactions: ketorolac [From Toradol] Allergy (Verified 02/13/18 13:05) ketorolac tromethamine [From Toradol] Allergy (Verified 02/13/18 13:05) latex Allergy (Verified 02/13/18 13:05) tramadol Allergy (Verified 02/13/18 13:05) tree nut Allergy (Verified 02/13/18 13:05) Home Medications: Medication Instructions Recorded Estrogens,Conjugated 12/19/17 Medical Decision Making - Diagnostics Imaging Results: MRI Pelvis Impression: 5.0 cm spiculated contrast-enhancing mass within the posterior subcutaneous tissues over the lower sacrum. Differential considerations include desmoid tumor versus malignant fibrotic neoplasm. Recommendation: Surgical consultation. Procedures: I did page the surgical service at [facility] and have faxed a referral to the general surgery clinic. Departure - Departure Disposition: Home, Routine, Self-Care Clinical Impression: Subcutaneous mass Condition: Good Instructions: Low Back Strain (ED) Additional Instructions: 1. I have faxed a referral to the [facility] surgery Clinic. 2. Please contact the [facility] the appointment line at [phone]. For a follow-up appointment with the surgery Clinic for further evaluation of your subcutaneous mass. 3. Please be sure to take the the MRIs with you to the appointment.
== END 2018-02-13 14:38 | disposition home or self-care (01) ==
LOC: EEVIPCON 13:00
DX: M79.89 Other specified soft tissue disorders (principal); Z87.2 Personal history of diseases of the skin and subcutaneous tissue; F17.200 Nicotine dependence, unspecified, uncomplicated

== ENCOUNTER 2018-03-04 17:56 | Emergency (ER) | payer MEDICAID ==
[2018-03-04 18:09] VITALS: BP 134/99
--- NOTE | 2018-03-04 18:17 | EDPHY ---
H & P Stated Complaint: Slammed fingers on R hand in car door Time Seen by Provider: 03/04/18 18:16 HPI/ROS: HPI: This is a 32-year-old female who presents with Chief Complaint: Slammed fingers of right-hand in car door Location: Right hand fingers Quality: Injury Duration: 3 hr prior to arrival Signs and Symptoms: No bleeding, no radiation, no numbness, no weakness, no tingling, no incontinence, + decreased range of motion, no swelling, + pain, no fever Timing: Acute, worsening Severity: 12/28 Context: Patient is right-hand dominant, accidentally slammed her right hand including the 2nd and 3rd fingers into her car door approximately 3 hr prior to arrival. She reports that the pain has gradually worsened as the swelling has worsened over the last 3 hr. 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 She took Tylenol and ibuprofen without pain relief. She denies radiation, paresthesias, weakness. She reports that the radiation of pain in the hand to her 2nd 3rd fingers. She reports that the swelling has caused decreased range of motion. Patient has an allergy to Toradol and tramadol. Modifying Factors: See above Comment: ROS: A comprehensive 10 system review of systems is otherwise negative aside from elements mentioned in the history of present illness. MEDICAL/SURGICAL/SOCIAL HISTORY: Medical/surgical history: hysterectomy, AGUSTIN knee surgery, AGUSTIN wrist surgery, umbilical henia repair, pilonidal cystectomy, obesity Social history: Current every day smoker. CONSTITUTIONAL: awake and alert, no obvious distress HEENT: Atraumatic and normocephalic. NECK: supple, no midline tenderness, flexion 45 degrees, extension 45 degrees, right and left lateral flexion 45 degrees. No meningismus. Cardiovascular: Normal S1/S2, regular rate, regular rhythm, without murmur rub or gallop. PULMONARY/CHEST: Symmetrical and nontender. no crepitus. Clear to auscultation bilaterally. Good air movement. No accessory muscle usage. ABDOMEN: Soft, nondistended, nontender, no ecchymosis. PELVIC: no pain with rocking; bilateral hips flexion 125 degrees, extension 30 degrees, with no pain internal rotation and no pain external rotation. BACK: No midline tenderness, no paraspinous spasm, deep tendon reflexes 2/2, no pain with straight leg raise, No foot drop. Achilles reflexes are equal bilaterally. Able to walk on heels and toes without difficulty. EXTREMITIES: 2/2 pulses, strength 5/5, DIP/PIP/MCP flexion/extension intact with good light touch sensation. no deformities, no clubbing, no cyanosis or edema. NEUROLOGICAL: no focal neuro deficits. GCS 15. Light touch sensation intact. SKIN: Warm and dry, no erythema. no rash. Good capillary refill. Source: Patient Exam Limitations: No limitations - Personal History LMP (Females 10-55): Hysterectomy Current Tetanus Diphtheria and Acellular Pertussis (TDAP): Yes Tetanus Vaccine Date: 2013 - Medical/Surgical History Hx Asthma: No Hx Chronic Respiratory Disease: No Hx Diabetes: No Hx Cardiac Disease: No Hx Renal Disease: No Hx Cirrhosis: No Hx Alcoholism: No Hx HIV/AIDS: No Hx Splenectomy or Spleen Trauma: No Other PMH: hysterectomy, AGUSTIN knee surgery, AGUSTIN wrist surgery, umbilical henia repair, pilonidal cystectomy, obesity - Social History Smoking Status: Current every day smoker Constitutional: Initial Vital Signs Temperature (C) 36.9 C 03/04/18 17:58 Heart Rate 82 03/04/18 17:58 Respiratory Rate 18 03/04/18 17:58 Blood Pressure 134/99 H 03/04/18 17:58 O2 Sat (%) 96 03/04/18 17:58 Allergies/Adverse Reactions: ketorolac [From Toradol] Allergy (Verified 03/04/18 17:57) ketorolac tromethamine [From Toradol] Allergy (Verified 03/04/18 17:57) latex Allergy (Verified 03/04/18 17:57) tramadol Allergy (Verified 03/04/18 17:57) tree nut Allergy (Verified 03/04/18 17:57) Home Medications: Medication Instructions Recorded Estrogens,Conjugated 12/19/17 Medical Decision Making - Diagnostics Imaging Results: Imaging Impressions Hand X-Ray 03/04/18 18:02 Impression: No acute osseous findings. ED Course/Re-evaluation: Vital signs reviewed and stable upon arrival. Right hand x-ray my read shows no acute fracture, positive mild soft tissue swelling Given 1 Percocet. Sister in the emergency room parking lot and will drive patient home. Placed in Velcro splint, advised supportive care and follow up if needed if symptoms persist No signs of neurovascular compromise/tenting of skin/compartment syndrome/ extremities and joints examined above and below area of concern and are neurovascularly intact. This patient was seen under the supervision of my secondary supervising physician. I evaluated care for this patient independently. Discussed this patient with Dr. Mays. Differential Diagnosis: Differential diagnosis includes but is not limited to radial fracture, ulnar fracture, meta carpal fracture, tendon injury, nerve injury, contusion Departure - Departure Disposition: Home, Routine, Self-Care Clinical Impression: Contusion of right hand including fingers Qualifiers: Encounter type: initial encounter Qualified Code(s): S60.221A - Contusion of right hand, initial encounter; S60.00XA - Contusion of unspecified finger without damage to nail, initial encounter; S60.00XA - Contusion of unspecified finger without damage to nail, initial encounter Condition: Good Instructions: Contusion in Adults (ED) Additional Instructions: Wear the splint while out of bed until pain free. Take Tylenol 650 mg every 4 hours and/or Ibuprofen 600 mg every 8 hours with food as needed for pain. Apply ice for 30 minutes at a time; 2-3 times per day for the next 1-2 days. [facility] if symptoms persist at which time they will evaluate and recommend with you if conservative management versus further imaging is indicated. The x-rays obtained in the emergency department today demonstrate no evidence of an obvious fracture. Sometimes fractures are not obvious on the initial set of x-rays performed in the ED. For this reason, you should have repeat x-rays performed in 7-10 days if you are having any pain exclude the possibility of an occult fracture. Referrals: [facility],. [Clinic] - As per Instructions Stand Alone Forms: Work Excuse
[2018-03-04] MEDS ORDERED: OXYCODONE/APAP 5/325 TAB PO ONE (18:49)
== END 2018-03-04 18:58 | disposition home or self-care (01) ==
DX: S60.221A Contusion of right hand, initial encounter (principal); S60.021A Contusion of right index finger without damage to nail, initial encounter; S60.031A Contusion of right middle finger without damage to nail, initial encounter; W23.1XXA Caught, crushed, jammed, or pinched between stationary objects, initial encounter; Y92.810 Car as the place of occurrence of the external cause; Y99.8 Other external cause status; F17.200 Nicotine dependence, unspecified, uncomplicated
CPT/HCPCS: L3984

== ENCOUNTER 2018-04-05 09:00 | Emergency (ER) | payer SELFPAY ==
--- NOTE | 2018-04-05 09:31 | EDPHY ---
General - History Smoking Status: Current every day smoker Time Seen by Provider: 04/05/18 09:27 Narrative: CHIEF COMPLAINT: Leg pain HISTORY OF PRESENT ILLNESS: Patient complains of right lower extremity pain x3 days. Gradual onset. Constant duration. Rated as severe at this time. It was mild at 1st and his daily worsen. So severe that she has difficulty walking on it. Isolated to the right leg below the knee, most profound in the calf. She has difficulty bearing weight with minimal improvement rest. No numbness or tingling. No weakness. No redness or warmth. No fever. No chest pain or shortness of breath. No pain elsewhere. She was trying to work today when boss noticed that she has difficulty walking, thus she stands or here. No previous incidence of cellulitis, DVT or other venous thrombolic event. No other associated complaints or modifying factors. REVIEW OF SYSTEMS: 10 systems were reviewed and negative with the exception of the elements mentioned in the history of present illness. PCP: Pending transition with reported insurance change SPECIALISTS: None currently PAST MEDICAL HISTORY: Osteoarthritis, umbilical hernia, pilonidal cyst, obesity PAST SURGICAL HISTORY: Hysterectomy, bilateral knee surgery, bilateral wrist surgery, hernia repair, pilonidal cystectomy SOCIAL HISTORY: Daily smoker trying to quit. Denies alcohol or drug use. Works as a caregiver. FAMILY HISTORY: Noncontributory EXAMINATION: Vitals: Triage VS reviewed General Appearance: Alert, no distress. Well appearing. Head: normocephalic, atraumatic Eyes: Pupils equal and round, no conjunctival pallor or injection ENT, Mouth: Mucous membranes moist Neck: Normal inspection, supple, non-tender Respiratory: Lungs are clear to auscultation Cardiovascular: Regular rate and rhythm. No murmur. Good signs of perfusion distally with symmetric DP PT pulses 2+. No cyanosis pallor the right lower extremity Neurological: A&O, nonfocal, light sensory symmetric in lower extremities. Strength is symmetric in lower extremities. Skin: Warm and dry, no rash. No petechiae or purpura. No cellulitis. No warmth. No crepitus or necrosis. Extremities: Tenderness of the right leg primarily in the calf. There is mild increased circumference of the right calf greater than the left. There is no pitting edema. No bony tenderness of the right knee, ankle, foot or calcaneus. Range of motion lower extremities symmetric. There is pain with passive dorsiflexion of the right ankle but there is no palpable cord. Psychiatric: Mood and affect normal DIFFERENTIAL DIAGNOSES: Including but not limited to DVT, dehydration, electrolyte disturbance, muscular spasm, rhabdomyolysis MDM: 9:30 a.m. Right lower extremity pain, swelling primarily over the right calf. She does have some discrepancy in circumference compared to the left, although both legs are slightly enlarged. There is no pitting edema. No cellulitis, fluctuance, warmth or evidence of osteomyelitis or septic joint. No fever. Vital signs are within normal limits and she does not meet SIRS criteria. She does have risk factors of smoking and estrogen use, thus I have immediately ordered ultrasound to rule out DVT. Laboratory studies are pending. IV will be established for pain control. She is in no acute distress. 10:30 a.m. Laboratory studies thus far unremarkable. X-ray and ultrasound pending. 11:30 a.m. Ultrasound is negative for acute DVT per radiologist. 11:50 a.m. X-ray of the tib-fib as read by me, without radiologist, reveals no acute findings. No evidence of osteomyelitis or fracture. Patient re-evaluated.She still reports some pain, but it is improved. We discussed the negative x-ray and DVT study. We discussed negative laboratory studies. I discussed the likelihood of soft tissue injury versus muscular cramp in the need for increase fluid intake, and symptomatic medications and I will provide for her. We discussed follow up with primary care physician and orthopedist. We discussed ED precautions for worsening pain, redness, warmth, fever. We discussed short course of Keflex for the possibility of early cellulitis that is not yet evident. She has been visited by binder caser she is provided outpatient resources. We also discussed the need to follow up with primary care physician for further pain medication. She is comfortable this plan and discharged home on crutches stable condition. SUPERVISION: Patient was independently examined, but I discussed the case with my secondary supervising physician Dr. Wang CONSULTATION: None (Vincent Cedillo) Medical Decision Making: I did not see this patient while she was in the emergency department. However her care was discussed with the PA while the patient was in the department. I agree with treatment plan and management (Sean Wang) - Objective Vital Signs: Initial Vital Signs Temperature (C) 97.9 F 04/05/18 09:04 Heart Rate 84 04/05/18 09:04 Respiratory Rate 18 04/05/18 09:04 Blood Pressure 120/98 H 04/05/18 09:04 O2 Sat (%) 95 04/05/18 09:04 O2 Delivery Mode Room Air Allergies/Adverse Reactions: ketorolac [From Toradol] Allergy (Verified 04/05/18 09:04) ketorolac tromethamine [From Toradol] Allergy (Verified 04/05/18 09:04) latex Allergy (Verified 04/05/18 09:04) tramadol Allergy (Verified 04/05/18 09:04) tree nut Allergy (Verified 04/05/18 09:04) Home Medications: Medication Instructions Recorded Estrogens,Conjugated 12/19/17 Cephalexin [Keflex (*)] 500 mg PO QID #40 cap 04/05/18 Cyclobenzaprine [Flexeril 10 MG 10 mg PO TID PRN #15 tab 04/05/18 (*)] Naproxen [Naprosyn] 500 mg PO BID #30 tablet 04/05/18 Laboratory Results: Laboratory Results 04/05/18 10:03 04/05/18 10:03 Medications Given: Discontinued Medications Cyclobenzaprine HCl (Flexeril) 10 mg PO EDNOW ONE Stop: 04/05/18 11:56 Last Admin: 04/05/18 12:01 Dose: 10 mg Sodium Chloride (Ns) 1,000 mls @ 0 mls/hr IV EDNOW ONE; Wide Open PRN Reason: Protocol Stop: 04/05/18 09:51 Last Admin: 04/05/18 10:07 Dose: 1,000 mls Ketamine HCl (Ketamine) 20 mg IVP EDNOW ONE Stop: 04/05/18 09:48 Last Admin: 04/05/18 10:06 Dose: 20 mg Lorazepam (Ativan Injection) 1 mg IVP EDNOW ONE Stop: 04/05/18 09:51 Last Admin: 04/05/18 10:07 Dose: 1 mg Departure - Departure Disposition: Home, Routine, Self-Care Clinical Impression: Pain in right leg Condition: Good Instructions: Leg Pain (ED) Additional Instructions: We strongly encourage you to establish a primary care provider. You have an appointment scheduled at [facility] in [place] on April 19 at 3:20 for screening and enrollment. There is NO charge for this appointment. If you are able to get to the clinic sooner, there are walk-in hours for financial screening/enrollment on Sunday's and from 8:00-11:00 AM You may also visit The [employer] [place] website: Chorus to dertermine what discouted health insurance plans you are eligible for based on your income Contact Orthopedics for outpatient care as well. Return to emergency department if her pain is not significantly improved the next 24 hr. Referrals: [facility],. [Clinic] - As per Instructions Physician,Emergency DeptMD [Medical Doctor] - As per Instructions Aiden Webb MD [Medical Doctor] - As per Instructions Stand Alone Forms: Work Excuse Prescriptions: Cephalexin [Keflex (*)] 500 mg PO QID #40 cap Cyclobenzaprine [Flexeril 10 MG (*)] 10 mg PO TID PRN #15 tab PRN Reason: Spasms Naproxen [Naprosyn] 500 mg PO BID #30 tablet
[2018-04-05] MEDS ORDERED: KETAMINE 200 MG/20 ML VIAL IVP ONE (09:47)
[2018-04-05] MEDS ORDERED: LORazepam 2 MG/ML INJ IVP ONE (09:50)
[2018-04-05] MEDS ORDERED: NS 1,000 ML IV ONE (09:50)
[2018-04-05 10:22] LABS: PLATELET COUNT 304 10^3/uL (150-400)
[2018-04-05 10:34] LABS: INR 0.96 (0.83-1.16)
[2018-04-05 10:35] LABS: CREATINE KINASE 53 IU/L (0-156)
[2018-04-05] MEDS ORDERED: CYCLOBENZAPRINE 10 MG TAB PO ONE (11:55)
--- NOTE | 2018-04-05 11:56 | ASMTCMCOM ---
CM Note CM Note Notes: Patient has visited this ER frequently-10 times this year with various issues. Patient explains that she has recently lost her Medicaid coverage due to her income. She states that she will have "employee" based health insurance as of the april. She does not know who the provider will be. Patient denies having a primary care provider and states that she used to have [employer], but that she has not seen a provider for a long time. I have encourgaed patient to get established with a PCP and offered to get her scheduled with [facility] for a screening to establish care. Patient agrees with this plan and confirms that the [place] location works well for her. I have scheduled an appointment at the clinic for April 19 at 3:30 PM and have provided patient with the walk in hours for the clinic as well. Patient understands that this is a screening appointment to establish care and that there will be NO cost to her. In addition, patient ,may visit the clinic on Sunday's or Sunday's between 8-11 AM for "drop-in" screening if she is able to so. I have provided patient with information regarding [employer] [place] so that she can look into low cost health insurance plans available to her based on her income. Date Signed: 04/05/2018 11:41 AM Electronically Signed By:Mendy Mercado RN
[2018-04-05 12:08] VITALS: BP 131/77
== END 2018-04-05 12:08 | disposition home or self-care (01) ==
LOC: EEVIPCON 09:00
DX: M79.661 Pain in right lower leg (principal)
CPT/HCPCS: 96374; J2060

== ENCOUNTER 2018-05-12 17:49 | Emergency (ER) | payer SELFPAY ==
--- NOTE | 2018-05-12 18:06 | EDPHY ---
H & P Stated Complaint: stabbing vaginal pain Time Seen by Provider: 05/12/18 17:59 HPI/ROS: CHIEF COMPLAINT: "Stabbing vaginal pain" HISTORY OF PRESENT ILLNESS: Patient presents the ED with complaints of "stabbing vaginal pain" which is been an intermittent chronic problem for the patient for years. The patient has been seen for this in the emergency department in the past without an obvious etiology. The patient reports she has also seen gynecology in the past without an obvious etiology. She denies any history of pelvic trauma. She denies any acute discharge. She denies any symptoms of dysuria. The patient does have a history of a pelvic cyst which she is currently awaiting her insurance to activate in May for surgical resection. The patient denies any fever, cough or congestion. She denies additional acute complaints. REVIEW OF SYSTEMS: A comprehensive 10 point review of systems is otherwise negative aside from elements mentioned in the history of present illness. Source: Patient Exam Limitations: No limitations - Personal History LMP (Females 10-55): Hysterectomy Current Tetanus/Diphtheria Vaccine: Yes Current Tetanus Diphtheria and Acellular Pertussis (TDAP): Yes Tetanus Vaccine Date: 2013 - Medical/Surgical History Hx Asthma: No Hx Chronic Respiratory Disease: No Hx Diabetes: No Hx Cardiac Disease: No Hx Renal Disease: No Hx Cirrhosis: No Hx Alcoholism: No Hx HIV/AIDS: No Hx Splenectomy or Spleen Trauma: No Other PMH: hysterectomy, AGUSTIN knee surgery, AGUSTIN wrist surgery, umbilical henia repair, pilonidal cystectomy, obesity - Social History Smoking Status: Current every day smoker - Physical Exam Exam: General Appearance: Obese female, no acute distress Eyes: Pupils equal and round no pallor or injection ENT, Mouth: Mucous membranes moist Respiratory: There are no retractions, lungs are clear to auscultation Cardiovascular: Regular rate and rhythm Gastrointestinal: Abdomen is soft and nontender, no masses, bowel sounds normal Pelvic exam: Normal external genitalia noted, no abnormal discharge noted from vaginal canal, nondescript tenderness noted throughout the enteritis without evidence of obvious infection. Neurological: 5/5 strength all 4 extremities Skin: Warm and dry, no rashes Musculoskeletal: Neck is supple nontender Extremities: symmetrical, full range of motion Constitutional: Initial Vital Signs Temperature (C) 36.8 C 05/12/18 17:52 Heart Rate 71 05/12/18 17:52 Respiratory Rate 16 05/12/18 17:52 Blood Pressure 139/81 H 05/12/18 17:52 O2 Sat (%) 95 05/12/18 17:52 O2 Delivery Mode Room Air Allergies/Adverse Reactions: ketorolac [From Toradol] Allergy (Verified 05/12/18 17:51) ketorolac tromethamine [From Toradol] Allergy (Verified 05/12/18 17:51) latex Allergy (Verified 05/12/18 17:51) tramadol Allergy (Verified 05/12/18 17:51) tree nut Allergy (Verified 05/12/18 17:51) Home Medications: Medication Instructions Recorded Estrogens,Conjugated 12/19/17 Medical Decision Making ED Course/Re-evaluation: The patient presents to the ED with complaints of chronic pelvic pain. The patient is status post hysterectomy. Pelvic examination demonstrates no evidence of an obvious external infection or abnormal discharge. Vaginosis panel and GC chlamydia testing was performed. The patient will be discharged home with instructions to contact the emergency department tomorrow to check the results of the pending studies. The patient is also referred to gynecology for further evaluation. Differential Diagnosis: Differential diagnosis considered includes pelvic pain, gonorrhea, chlamydia, bacterial vaginosis - Data Points Laboratory Results: 05/12/18 18:40 C.trachomatis RNA (TMA) Pending N.gonorrhoeae RNA (TMA) Pending Departure - Departure Disposition: Home, Routine, Self-Care Clinical Impression: Vulvodynia Condition: Good Instructions: Pelvic Pain in Women (ED) Additional Instructions: 1. Please contact the emergency department in 2 days to check the results of your pelvic tests at [phone]. 2. Tylenol as needed for pain. Take Ibuprofen or Motrin 600 mg by mouth three times a day. 3. Please schedule a follow-up appointment with a drying and winding supervisor you have been referred to. Referrals: Caitlyn Peters DO [Doctor of Osteopathy] - As per Instructions
[2018-05-12] MEDS ORDERED: ACETAMINOPHEN 500 MG TAB PO ONE (19:23)
[2018-05-12 20:26] VITALS: BP 134/73
[2018-05-13 11:47] LABS: GC AMPLIFICATION GENPROBE NEGATIVE (NEGATIVE)
== END 2018-05-12 20:25 | disposition home or self-care (01) ==
DX: N94.819 Vulvodynia, unspecified (principal); F17.200 Nicotine dependence, unspecified, uncomplicated; Z90.710 Acquired absence of both cervix and uterus

== ENCOUNTER 2018-06-14 13:05 | Emergency (ER) | payer SELFPAY ==
[2018-06-14 13:12] VITALS: BP 129/75
--- NOTE | 2018-06-14 13:18 | EDPHY ---
H & P Stated Complaint: slipped on ice fell inj l knee /prior surg Time Seen by Provider: 06/14/18 13:16 HPI/ROS: HPI: This is a 32-year-old female who presents with Chief Complaint: slipped on ice fell inj l knee /prior surg Location: Left knee Quality: Injury Duration: On 06/09/2018, approximately 5 days ago Signs and Symptoms: No bleeding, no radiation, no numbness, no weakness, no tingling, no incontinence, + decreased range of motion, no swelling, + pain, no fever Timing: Acute, worsened Severity: 12/28 Context: Patient reports that approximately 5 days ago she is walking out of her apartment complex when she slipped on the ice and twisted her left knee and landed directly on the middle portion of her left knee. She reports that she felt immediate, constant, nonradiating pain in the medial aspect of her knee. After a few minutes she was able to ambulate without assistance. She took Tylenol and ibuprofen over the last few days with increased pain and swelling. Patient reports that she has had a left leg fracture and surgery on her left knee in the past by Dr. Noriega in [facility]. Patient reports that she has a small bruise on the inside portion of her left knee. Denies LOC/head injury/ neck pain/dizziness/nausea/vomiting/amnesia. Left knee Pain is worsened with weight-bearing and flexion. Allergic to tramadol and Toradol. Modifying Factors: Tylenol and ibuprofen with no relief. Comment: ROS: A comprehensive 10 system review of systems is otherwise negative aside from elements mentioned in the history of present illness. MEDICAL/SURGICAL/SOCIAL HISTORY: Medical history: obesity. Surgical history: Hysterectomy, AGUSTIN knee surgery, AGUSTIN wrist surgery, umbilical hernia repair, pilonidal cystectomy Social history: Current every day smoker. Employed as a caregiver in a unit. CONSTITUTIONAL: Moderate distress, morbidly obese, white female, awake and alert HEENT: Atraumatic and normocephalic. NECK: supple, no midline tenderness, flexion 45 degrees, extension 45 degrees, right and left lateral flexion 45 degrees. Cardiovascular: Normal S1/S2, regular rate, regular rhythm, without murmur rub or gallop. PULMONARY/CHEST: Symmetrical and nontender. no crepitus. Clear to auscultation bilaterally. Good air movement. No accessory muscle usage. ABDOMEN: Soft, nondistended, nontender. PELVIC: no pain with rocking; bilateral hips flexion 125 degrees, extension 30 degrees, with no pain internal rotation and no pain external rotation. BACK: No midline tenderness EXTREMITIES: 2/2 pulses, strength 5/5, left KNEE: Small 3 mm black ecchymosis noted on the medial portion; mild effusion, moderate medial and lateral joint line tenderness, full extension to 180, flexion to 120. Mild pain with varus and valgus exam. No pain with anterior drawer or posterior drawer test. Extensor mechanism intact. DIP/PIP/MCP flexion/extension intact with good light touch sensation. no deformities, no clubbing, no cyanosis or edema. NEUROLOGICAL: no focal neuro deficits. GCS 15. Light touch sensation intact. SKIN: Warm and dry, no erythema. no rash. Good capillary refill. Source: Patient Exam Limitations: No limitations - Personal History LMP (Females 10-55): Hysterectomy Current Tetanus Diphtheria and Acellular Pertussis (TDAP): Yes Tetanus Vaccine Date: 2013 - Medical/Surgical History Hx Asthma: No Hx Chronic Respiratory Disease: No Hx Diabetes: No Hx Cardiac Disease: No Hx Renal Disease: No Hx Cirrhosis: No Hx Alcoholism: No Hx HIV/AIDS: No Hx Splenectomy or Spleen Trauma: No Other PMH: hysterectomy, AGUSTIN knee surgery, AGUSTIN wrist surgery, umbilical henia repair, pilonidal cystectomy, obesity - Social History Smoking Status: Current every day smoker Constitutional: Initial Vital Signs Temperature (C) 36.7 C 06/14/18 13:09 Heart Rate 78 06/14/18 13:09 Respiratory Rate 18 06/14/18 13:09 Blood Pressure 129/75 H 06/14/18 13:09 O2 Sat (%) 96 06/14/18 13:09 O2 Delivery Mode Room Air Allergies/Adverse Reactions: ketorolac [From Toradol] Allergy (Verified 06/14/18 13:08) ketorolac tromethamine [From Toradol] Allergy (Verified 06/14/18 13:08) latex Allergy (Verified 06/14/18 13:08) tramadol Allergy (Verified 06/14/18 13:08) tree nut Allergy (Verified 06/14/18 13:08) Home Medications: Medication Instructions Recorded Estrogens,Conjugated 12/19/17 oxyCODONE/APAP 5/325 [Percocet 1 - 2 tab PO Q4H PRN #10 tab 06/14/18 5/325 (*)] Medical Decision Making - Diagnostics Imaging Results: Imaging Impressions Knee X-Ray 06/14/18 13:23 Impression: Moderate medial compartment osteoarthritis. Procedures: Procedure: Splint placement. A left knee immobilizer and crutches were applied by the Emergency Room nanoscience technician. After application of the splint I returned and re-examined the patient. The splint was adequately immobilizing the joint and distal to the splint the patient's circulation and sensation was intact. ED Course/Re-evaluation: Vital signs reviewed and are stable. Left knee x-ray and Percocet x 2 given Left knee x-ray my read shows no fracture, dislocation, significant tissue swelling. knee immobilizer, crutches, work excuse, dispense #10 Percocet, orthopedic follow-up No signs of neurovascular compromise/tenting of skin/compartment syndrome/ extremities and joints examined above and below area of concern and are neurovascularly intact. This patient was seen under the supervision of my secondary supervising physician. I evaluated care for this patient independently. Discussed this patient with Dr. Lares who did not see the patient. Differential Diagnosis: Knee injury while [] including but not limited to fracture, ACL injury, contusion, muscular strain, and meniscus injury. - Data Points Medications Given: Discontinued Medications Oxycodone/Acetaminophen (Percocet 5/325) 2 tab PO EDNOW ONE Stop: 06/14/18 13:24 Last Admin: 06/14/18 13:35 Dose: 2 tab Departure - Departure Disposition: Home, Routine, Self-Care Clinical Impression: Injury of knee, left Qualifiers: Encounter type: initial encounter Qualified Code(s): S89.92XA - Unspecified injury of left lower leg, initial encounter Osteoarthritis of left knee Qualifiers: Osteoarthritis type: primary Qualified Code(s): M17.12 - Unilateral primary osteoarthritis, left knee Condition: Good Instructions: Knee Sprain (ED), Crutch Instructions (ED), Knee Immobilizer (ED) Additional Instructions: Wear the knee immobilizer while out of bed until pain free or seen by Orthopedics. Use crutches to aid ambulation. Start with toe-touch weight-bearing status. Take Tylenol 650 mg every 4 hours and/or Ibuprofen 600 mg every 8 hours with food as needed for pain. Use Percocet every 6 hours as needed for severe/break through pain. Do not use Tylenol and Percocet concomitantly. Apply ice for 30 minutes at a time; 2-3 times per day for the next 1-2 days. Follow up with Orthopedics in 7-10 days if symptoms persist at which time they will evaluate and recommend with you if conservative management versus MRI of the knee is indicated. The x-rays obtained in the emergency department today demonstrate no evidence of an obvious fracture. Referrals: Ihsan Higgins MD [Medical Doctor] - As per Instructions Stand Alone Forms: Work Excuse Prescriptions: oxyCODONE/APAP 5/325 [Percocet 5/325 (*)] 1 - 2 tab PO Q4H PRN #10 tab PRN Reason: Pain, Severe
[2018-06-14] MEDS ORDERED: OXYCODONE/APAP 5/325 TAB PO ONE (13:23)
== END 2018-06-14 14:07 | disposition home or self-care (01) ==
LOC: EEVIPCON 13:05
DX: S89.92XA Unspecified injury of left lower leg, initial encounter (principal); M17.12 Unilateral primary osteoarthritis, left knee; E66.9 Obesity, unspecified; Z68.42 Body mass index [BMI] 45.0-49.9, adult; W00.9XXA Unspecified fall due to ice and snow, initial encounter; Y92.039 Unspecified place in apartment as the place of occurrence of the external cause; F17.200 Nicotine dependence, unspecified, uncomplicated

== ENCOUNTER 2018-07-05 19:53 | Emergency (ER) | payer MEDICAID, OTHER ==
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
[2018-07-05] MEDS ORDERED: HYDROCODONE/APAP 5/325 TAB PO ONE (21:44)
[2018-07-05 22:09] VITALS: BP 132/81
== END 2018-07-05 22:09 | disposition home or self-care (01) ==
DX: R68.84 Jaw pain (principal); Y04.8XXA Assault by other bodily force, initial encounter

== ENCOUNTER 2018-11-10 23:37 | Emergency (ER) | payer MEDICAID | END 2018-11-11 00:28 | disposition home or self-care (01) ==

== ENCOUNTER 2018-11-14 22:56 | Emergency (ER) | payer OTHER, MEDICAID | END 2018-11-15 01:37 | disposition home or self-care (01) ==